=== PATIENT | male | born 1990 | race Caucasian/White ===

== ENCOUNTER 2019-08-06 16:09 | Emergency (ER) | payer MEDICAID ==
[~2019-08-06] VITALS: Ht 177.8 cm; Wt 81.8 kg
[2019-08-06 16:38] VITALS: Ht 177.8 cm; Wt 81.8 kg
[2019-08-06] MEDS ORDERED: IBUPROFEN800 MG PO (17:52)
[2019-08-06] MEDS ORDERED: BACTRIM 400-801 TAB PO (17:52)
[2019-08-06 18:31] VITALS: BP 128/68
[2019-08-24 12:58] VITALS: Ht 177.8 cm; Wt 81.8 kg
== END 2019-08-06 18:31 | disposition home or self-care (01) ==
LOC: D.ER 16:09
DX: L03.116 Cellulitis of left lower limb (principal)

== ENCOUNTER 2019-08-15 16:25 | Inpatient (IN) | payer MEDICAID ==
[~2019-08-15] VITALS: Ht 177.8 cm; Wt 8.6 kg
--- NOTE | ~2019-08-15 | HEMODYNAMI ---
PATIENT:NOLVIA MARTIN MEDICAL RECORD: [id number] : [birth year] LOCATION:[facility] D.2107 ADMISSION DATE: 08/15/19 Generatedon:08/21/201914:27 Patient name: NOLVIA MARTIN Patient #: [id number] SSN: DO B: 1990 Date of study: 08/21/2019 Page: Of Hemodynamic Procedure Report Patient Data Patient Demographics Procedure consent was obtained First Name: NOLVIA Gender: Male Last Name: VERONICA : 1990 Middle Initial: PHILLIP Age: 29 year(s) Patient #: [id number] Race: Additional ID: [id number] Contact details Address: [facility] UNKNOWN State: [place] City: [place] Zip code: [address] Past Medical History Allergies Allergen Reaction Date Comments Reported Other allergy 08/21/2019 N Admission Admission Data Admission Date: 08/15/2019 Admission Time: 19:31 Room #: D.2107 Height (in.): 69.69 BSA: 2.04 (m2) Height (cm.): 177 BMI: 27.77 (kg/m2) Weight (lbs.): 191.8 Weight (kg.): 87 Lab Results Lab Result Date: 08/21/2019 Lab Result Time: 0:00 Biochemistry Name Units Result Min Max BUN mg/dl 14 --(--*-)-- 7 18 Creatinine mg/dl 0.8 --(-*--)-- 0.6 1.3 eGFR ml/min 90 --(*---)-- 90 120 NONAFRICAN CBC Name Units Result Min Max Hematocrit % 40.6 -*(----)-- 42 54 Hemoglobin g/dl 13.6 --(*---)-- 13.5 17.5 Procedure Procedure Types Cath Procedure Diagnostic Procedure ESTEFANY Procedure Description Procedure Date Procedure Date: 08/21/2019 Procedure Start Time: 13:49 Procedure Staff Name Function Danny Hollingsworth MD Performing Physician Dora Lopez RT Monitor Eva Holbrook RT Monitor Eliana Stauffer RN Nurse Jazmín Jenkins Senior Laboratory Technician Zeeshan Brandt CRNA Additional personnel Procedure Data Cath Procedure Estimated blood loss: 0 ml Procedure Complications No complications Procedure Medications Medication Administration Route Dosage Oxygen etCO2 Nasal cannula 2 l/min Refer to Anesthesia Notes for Sedation Medications Hurricaine Bulpitt P.O. 1 Sprays Hemodynamics Rest BSA: 2.04 (m2) HGB: 13.6 (g/dl) O2 Consumption: Estimated: 246.54 (ml/min) O2 Consumption indexed: Estimated:120.85 (ml/min/m) Heart Rate: 59 (bpm) Snapshots Pre Cath Intra NCS Post Cath Vital Signs Time Heart Resp SPO2 etCO2 NIBP (mmHg) Rhythm Pain Sedation Rate (ipm) (%) (mmHg) Status Level (bpm) 14:05:36 71 16 97 24.7 143/93(111) NSR 0 (11) 10(A) , No pain 14:09:57 72 14 98 0 147/83(117) NSR 0 (11) 10(A) , No pain 14:14:51 84 21 94 37.4 134/77(104) NSR 0 (11) 10(A) , No pain 14:19:05 82 23 98 31.4 151/98(127) NSR 0 (11) 9(A) , No pain 14:23:25 88 22 99 35.9 137/82(109) NSR 0 (11) 10(A) , No pain Medications Time Medication Route Dose Verified Delivered Reason Notes Effecti veness by by 14:04:42 Oxygen etCO2 2 Danny Monroy used for Nasal l/min St Dylon Stauffer RN procedure cannula 14:04:56 Refer to Danny Monroy Anesthesia St Dylon Stauffer RN Notes for Sedation Medications 14:05:07 Hurricaine P[address]O. 1 Danny Monroy for local Bulpitt Sprays St Dylon Stauffer RN anesthetic Procedure Log Time Note 13:50:49 Informed consent obtained and on chart 13:51:44 Procedure Status Urgent Heart Cath (IP). 13:51:45 Time tracking: Regular hours (M-F 7:00 - 5:00) 13:51:47 Plan of Care:Hemodynamics will remain stable., Cardiac rhythm will remain stable., Comfort level will be maintained., Respiratory function will remain adequate., Patient/ family verbilizes understanding of procedure., Procedure tolerated without complication., Recovers from procedure without complications.. 13:51:51 Eva Holbrook RT(R) sent for patient. Start room use. 13:51:55 H&P Date Dictated: 08/21/2019 Within 30 days and on chart.. 13:52:11 Patient allergic to Other allergyPCN 13:53:09 Lab Result : BUN 14 mg/dl 13:53:09 Lab Result : eGFR NONAFRICAN 90 ml/min 13:53:09 Lab Result : Creatinine 0.8 mg/dl 13:53:09 Lab Result : Hemoglobin 13.6 g/dl 13:53:09 Lab Result : Hematocrit 40.6 % 13:53:52 Zeeshan Brandt CRNA present and monitoring patient for TIVA. 13:56:14 Patient Weight : 191.8 lbs 13:56:18 Patient Height : 69.69 inches 14:00:03 Patient arrived from [facility] to CCL 1. Patient remains on bed/stretcher for procedure. 14:00:04 Warm blankets applied, and kaiser hugger turned on for patient comfort. 14:00:05 Correct patient and procedure confirmed by team. 14:00:06 ECG and BP/O2 sat monitors applied to patient. 14:01:42 Full Disclosure recording started 14:01:42 Pre-procedure instructions explained to patient. 14:01:43 Pre-op teaching completed and patient verbalized understanding. 14:01:45 Family in patients room. 14:01:58 Is the patient allergic to Iodine/contrast media? No. 14:02:04 Is patient on blood thinner?No 14:02:07 Patient diabetic? No. 14:02:28 If diabetic: On Metformin? No 14:02:37 Previous problem with sedation/anesthesia? No ? 14:02:38 Snore? Yes 14:02:39 Sleep apnea? No 14:02:40 Deviated septum? No 14:02:40 Opens mouth fully? Yes 14:02:41 Sticks out tongue? Yes 14:02:43 Airway obstruction? No ? 14:02:45 Dentures? No ? 14:02:55 Patient pain scale 0/10 ?. 14:03:17 IV patent on arrival in right forearm with 0.9% NaCl at O. 14:03:46 Alarms reviewed by Angel Bonilla 14:04:31 Vital chart was started 14:04:37 Baseline sample Acquired. 14:04:42 Oxygen 2 l/min etCO2 Nasal cannula was administered by Eliana Stauffer RN; used for procedure; Verbal order read back and verified. 14:04:44 Rhythm: sinus rhythm 14:04:56 Refer to Anesthesia Notes for Sedation Medications was administered by Eliana Stauffer RN; ; Verbal order read back and verified. 14:05:07 Hurricaine Bulpitt 1 Sprays P.O. was administered by Eliana Stauffer RN; for local anesthetic; Verbal order read back and verified. 14:12:18 --------ALL STOP TIME OUT------ 14:12:19 Final Timeout: patient, procedure, and site verified with staff and physician. All members of the team are in agreement. 14:12:40 Physical assessment completed. ASA score P 2 - A patient with mild systemic disease as per Danny Hollingsworth MD. 14:12:44 Sedation plan: TIVA Medication:Propofol 14:13:05 ESTEFANY 14:13:08 Jazmín [place] Envelope Maker present for ESTEFANY. 14:13:24 ESTEFANY started. 14:21:25 ESTEFANY completed. 14:21:39 Procedure ended.(Physican Out) 14:22:05 Post-procedure physical assessment completed. ASA score P 2 - A patient with mild systemic disease as per Danny Hollingsworth MD. 14:22:08 Post procedure rhythm: sinus rhythm 14:22:11 Estimated blood loss: 0 ml 14:22:16 Post procedure instruction explained to patient.Patient verbalizes understanding. 14:22:17 Patient needs reinforcement of post procedure teaching. 14:22:41 Procedure Complication : No complications 14:22:52 ESTEFANY Findings: vegetation noted (see operative note) 14:23:03 Operative report dictated upon procedure completion. 14:23:04 See physician's report for complete and final results. 14:26:06 Report given to [facility]. 14:26:09 Patient transfered to [facility] with Bed. 14:26:13 Vital chart was stopped 14:26:18 End room use (Document Last) 14:27:01 End room use (Document Last) 14:27:22 End room use (Document Last) Signature Audit Longs Stage Time Signature Unsigned Intra-Procedure 08/21/2019 Dora Lopez 2:27:01 PM RT(R) Intra-Procedure 08/21/2019 Eliana Stauffer RN 2:27:22 PM Intra-Procedure 08/21/2019 Danny Vincent 2:27:46 PM Dylon [facility] [address] [place] [address]
[~2019-08-15 16:25] MED LIST: BACTRIM 400-801 TAB PO; IBUPROFEN800 MG PO
[2019-08-15 17:40] LABS: BASOPHILS 0.4 % (0-2); EOSINOPHILS 3.5 % (0-7); HEMATOCRIT 39.9 % (42.0-54.0); HEMOGLOBIN 13.5 g/dL (13.5-17.5); IMMATURE GRANULOCYTES 0.2 % (0-5); LYMPHOCYTES 21.1 % (15-50); MCH 29.9 pg (26.0-34.0); MCHC 33.8 g/dL (31.0-37.0); MCV 88.5 fL (80.0-100.0); MEAN PLATELET VOLUME 9.7 fL (7.4-10.4); MONOCYTES 7.5 % (2-11); NEUTROPHILS 67.3 % (40-80); PLATELET COUNT 257 10x3/uL (130-400); RBC 4.51 10x6/uL (4.20-6.10); RDW 12.9 % (11.5-14.5); WBC 15.6 10x3/uL (4.8-10.8)
[2019-08-15 17:54] LABS: CALC OSMOLALITY 279 mosm/kg (275-300); CALCIUM 8.3 mg/dL (8.5-10.1); CARBON DIOXIDE 29.4 mmol/L (21.0-32.0); CHLORIDE - SERUM 101 mmol/L (98-107); CREATININE - SERUM 0.9 mg/dL (0.6-1.3); GLUCOSE 80 mg/dL (74-106); POTASSIUM - SERUM 4.5 mmol/L (3.5-5.1); SODIUM 137 mmol/L (136-145); UREA NITROGEN 32 mg/dL (7-18); eGFR NON AFRICAN AMERICAN > 90 mL/min (90-120)
[2019-08-15 18:00] LABS: ALBUMIN 3.4 g/dL (3.4-5.0); ALKALINE PHOSPHATASE 108 U/L (46-116); ALT (SGPT) 38 U/L (10-68); BILIRUBIN - TOTAL 0.73 mg/dL (0.2-1.3); PROTEIN - SERUM 6.9 g/dL (6.4-8.2)
--- NOTE | 2019-08-15 19:18 | NUR ---
ASSUMED CARE OF PATIENT, RECEIVED REPORT FROM YESSICA AGUIAR.
[2019-08-15 19:59] LABS: APPEARANCE CLEAR (CLEAR); COLOR YELLOW (YELLOW)
[2019-08-15 20:00] LABS: BILIRUBIN NEGATIVE (NEGATIVE); GLUCOSE NEGATIVE (NEGATIVE); KETONE NEGATIVE (NEGATIVE); NITRITE NEGATIVE (NEGATIVE); PROTEIN NEGATIVE (NEGATIVE); UROBILINOGEN NORMAL (NORMAL)
[2019-08-15 20:04] LABS: UDS - AMPHET POSITIVE QUAL (NEGATIVE); UDS - BARB NEGATIVE QUAL (NEGATIVE); UDS - BENZO NEGATIVE QUAL (NEGATIVE); UDS - COCAINE NEGATIVE QUAL (NEGATIVE); UDS - OPIATE NEGATIVE QUAL (NEGATIVE); UDS - PCP NEGATIVE QUAL (NEGATIVE); UDS - THC POSITIVE QUAL (NEGATIVE)
--- NOTE | 2019-08-15 20:50 | NUR ---
PT ARRIVED TO FLOOR VIA WHEELCHAIR ALERT AND ORIENTED X4. PT COMPLAINS OF PAIN AND SORES ON BLE. PT CAME TO FLOOR WITH VANCAMYCIN RUNNING. PT STATES HE IS "sTARVING" AND REQUESTED FOOD. SANWHICH AND COKE PROVIDED. VITALS ARE STABLE AT THIS TIME. NO S/S OF DISTRESS. BED LOW CALL LIGHT WITHIN REACH. WILL CONTINUE TO MONITOR.
[2019-08-15 21:38] VITALS: BP 137/87; BMI 24.7
--- NOTE | 2019-08-15 21:49 | NUR ---
RN ASMISSION ASSESSMENT COMPLETED. IV TO LAC WITH IVAB INFUSING AT THIS TIME. PT ALERT. NUMEROUS SORES NOTED TO BUTTOCKS. SORE TO L POSTERIOR THIGH APPROX 2.5CM IN DIAMETER. SORE TO L ANTERIOR THIGH APPROX 2CM IN DIAMETER. 2 SORES TO L JOHNSON 2CM AND 3CM IN DIAMTER RESPECTIVELY. JOHNSON RED AND HOT TO TOUCH. HEALING SORE TO OUTER ASPECT OF L FOOT .75CM IN DIAMETER. CALL LIGHT WITHIN REACH.
[2019-08-16 00:15] VITALS: BP 136/83
[2019-08-16 04:18] VITALS: BP 136/70
[2019-08-16 05:30] LABS: BASOPHILS 0.3 % (0-2); EOSINOPHILS 4.5 % (0-7); HEMATOCRIT 36.8 % (42.0-54.0); HEMOGLOBIN 12.1 g/dL (13.5-17.5); IMMATURE GRANULOCYTES 0.2 % (0-5); LYMPHOCYTES 23.4 % (15-50); MCH 29.7 pg (26.0-34.0); MCHC 32.9 g/dL (31.0-37.0); MCV 90.4 fL (80.0-100.0); MEAN PLATELET VOLUME 10.3 fL (7.4-10.4); MONOCYTES 7.8 % (2-11); NEUTROPHILS 63.8 % (40-80); PLATELET COUNT 240 10x3/uL (130-400); RBC 4.07 10x6/uL (4.20-6.10); RDW 13.2 % (11.5-14.5)
[2019-08-16 05:56] LABS: CALC OSMOLALITY 280 mosm/kg (275-300); CALCIUM 8.1 mg/dL (8.5-10.1); CARBON DIOXIDE 27.4 mmol/L (21.0-32.0); CHLORIDE - SERUM 105 mmol/L (98-107); CREATININE - SERUM 0.9 mg/dL (0.6-1.3); GLUCOSE 102 mg/dL (74-106); PHOSPHOROUS 3.7 mg/dL (2.5-4.9); POTASSIUM - SERUM 4.3 mmol/L (3.5-5.1); SODIUM 139 mmol/L (136-145); eGFR NON AFRICAN AMERICAN > 90 mL/min (90-120)
[2019-08-16 06:01] LABS: UREA NITROGEN 21 mg/dL (7-18)
[2019-08-16 06:06] LABS: APTT 36.4 SECONDS (22.8-39.4); INR 1.02 (0.85-1.17); PROTIME 12.9 SECONDS (11.6-15.0)
[2019-08-16 06:16] LABS: WBC 11.3 10x3/uL (4.8-10.8)
[2019-08-16 09:10] VITALS: BP 162/81
[2019-08-16 12:00] VITALS: BP 148/92; BP 149/92
[2019-08-16 13:42] VITALS: BMI 24.6
[2019-08-16 16:00] VITALS: BP 157/89
--- NOTE | 2019-08-16 16:55 | NUR ---
REVIEWED THE ASSESSMENT BY GOVERNMENT GAUGER TODAY AND I CONCUR.
[2019-08-16 20:30] VITALS: BP 157/81
[2019-08-17 05:33] LABS: BASOPHILS 0.2 % (0-2); EOSINOPHILS 4.2 % (0-7); HEMATOCRIT 37.5 % (42.0-54.0); HEMOGLOBIN 12.1 g/dL (13.5-17.5); IMMATURE GRANULOCYTES 0.3 % (0-5); LYMPHOCYTES 19.8 % (15-50); MCH 29.7 pg (26.0-34.0); MCHC 32.3 g/dL (31.0-37.0); MCV 91.9 fL (80.0-100.0); NEUTROPHILS 68.5 % (40-80); PLATELET COUNT 224 10x3/uL (130-400); RBC 4.08 10x6/uL (4.20-6.10); RDW 13.1 % (11.5-14.5); WBC 10.3 10x3/uL (4.8-10.8)
[2019-08-17 05:52] LABS: CALC OSMOLALITY 278 mosm/kg (275-300); CALCIUM 8.1 mg/dL (8.5-10.1); CHLORIDE - SERUM 104 mmol/L (98-107); CREATININE - SERUM 0.9 mg/dL (0.6-1.3); GLUCOSE 138 mg/dL (74-106); MAGNESIUM - SERUM 1.8 mg/dL (1.8-2.4); PHOSPHOROUS 2.9 mg/dL (2.5-4.9); POTASSIUM - SERUM 4.3 mmol/L (3.5-5.1); SODIUM 139 mmol/L (136-145); VANCOMYCIN - TROUGH 5.6 ug/mL (10.0-20.0); eGFR NON AFRICAN AMERICAN > 90 mL/min (90-120)
[2019-08-17 05:53] LABS: UREA NITROGEN 10 mg/dL (7-18)
--- NOTE | 2019-08-17 08:01 | NUR ---
RECEIVED PT SITTING ON SIDE OF BED EATING BREAKFAST. LLE WITH TWO AREAS OF SCABS THAT ARE DRY, NO DRESSING AT PRESENT. RIGHT FOOT WITH MULTIPLE AREAS OF SCAB AROUND TOES. NOSE WITH SCAB TO RIGHT LATERAL OUTSIDE AND LEFT NARE INTERNALLY.
[2019-08-17 09:14] VITALS: BP 145/85
[2019-08-17 12:47] VITALS: BP 145/81
[2019-08-17 18:21] VITALS: BP 156/80
--- NOTE | 2019-08-17 19:18 | NUR ---
AT REST WITH EYES CLOSED BED LOW AND LOCKED AND CALL LIGHT IS IN REACH
[2019-08-17 20:00] VITALS: BP 144/85
[2019-08-18] VITALS: BP 131/90
--- NOTE | 2019-08-18 03:56 | NUR ---
I have reviewed this patient and I concur with the Shift Assessment completed by the Licensed Practical Nurse today this shift.
[2019-08-18 04:00] VITALS: BP 154/94
[2019-08-18 04:22] LABS: BASOPHILS 0.4 % (0-2); EOSINOPHILS 5.1 % (0-7); HEMATOCRIT 37.5 % (42.0-54.0); HEMOGLOBIN 12.2 g/dL (13.5-17.5); IMMATURE GRANULOCYTES 0.1 % (0-5); LYMPHOCYTES 27.5 % (15-50); MCH 29.6 pg (26.0-34.0); MCHC 32.5 g/dL (31.0-37.0); MEAN PLATELET VOLUME 9.7 fL (7.4-10.4); MONOCYTES 8.2 % (2-11); NEUTROPHILS 58.7 % (40-80); PLATELET COUNT 223 10x3/uL (130-400); RBC 4.12 10x6/uL (4.20-6.10); RDW 12.7 % (11.5-14.5)
[2019-08-18 04:43] LABS: CALC OSMOLALITY 276 mosm/kg (275-300); CALCIUM 8.1 mg/dL (8.5-10.1); CARBON DIOXIDE 31.4 mmol/L (21.0-32.0); CHLORIDE - SERUM 104 mmol/L (98-107); CREATININE - SERUM 0.9 mg/dL (0.6-1.3); GLUCOSE 144 mg/dL (74-106); MAGNESIUM - SERUM 1.8 mg/dL (1.8-2.4); PHOSPHOROUS 3.3 mg/dL (2.5-4.9); POTASSIUM - SERUM 4.1 mmol/L (3.5-5.1); SODIUM 138 mmol/L (136-145); UREA NITROGEN 8 mg/dL (7-18); eGFR NON AFRICAN AMERICAN > 90 mL/min (90-120)
[2019-08-18 07:38] VITALS: BP 148/88
--- NOTE | 2019-08-18 09:14 | NUR ---
PT RECEIVED SLEEPING IN BED. AROUSE TO VOICE BUT BACK TO SLEEP EASILY. WILL MONITOR.
[2019-08-18 11:24] VITALS: BP 148/94
[2019-08-18 15:06] VITALS: BP 155/93
--- NOTE | 2019-08-18 16:14 | NUR ---
IN ADDITION TO OPEN WOUNDS ON LEFT JOHNSON (X2) AND RIGHT FOOT PT ALSO HAS WOUND ON LEFT POSTERIOR THIGH (AT BOTTOM OF BUTTOCKS) IT HAS A SCAB AND NO DRAINAGE. INSTRUCTED PT TO USE BETADINE ON IT WHEN DRESSING CHANGES ARE DONE ON LEGS. PT VOICED UNDERSTANDING. WOUND CARE WILL MONITOR.
--- NOTE | 2019-08-18 19:48 | NUR ---
REPORT RECIEVED AND ROUNDING COMPLETE. PATIENT LAYING IN SUPINE POSITION IN BED. PURVI ASKED FOR 2 SPRITES, I GAVE THEM. PURVI ASKED ME TO TAKE DINNER TRAY OUT OF HIS ROOM, I ALSO DID THAT. PATIENT HAS A SALINE LOCKED LEFT FOREARM PIV. PIV SHOWING NO S/SX OF INFILTRATION. PATIENT NOT SHOWING ANY S/SX OF DISTRESS AT THIS TIME. CALL LIGHT WITH REACH AND BED IN LOWEST LOCKED POSITION. PATIENT STATES HE HAS NO OTHER NEEDS AT THIS TIME.
[2019-08-19 00:49] VITALS: BP 141/83
[2019-08-19 05:38] VITALS: BP 152/100
--- NOTE | 2019-08-19 06:02 | NUR ---
I have reviewed this patient and I concur with the Shift Assessment completed by the Licensed Practical Nurse today this shift.
[2019-08-19 06:06] LABS: BASOPHILS 0.5 % (0-2); EOSINOPHILS 5.2 % (0-7); HEMATOCRIT 39.7 % (42.0-54.0); HEMOGLOBIN 13.1 g/dL (13.5-17.5); IMMATURE GRANULOCYTES 0.2 % (0-5); LYMPHOCYTES 28.7 % (15-50); MCH 29.6 pg (26.0-34.0); MCV 89.6 fL (80.0-100.0); MEAN PLATELET VOLUME 9.9 fL (7.4-10.4); MONOCYTES 7.2 % (2-11); NEUTROPHILS 58.2 % (40-80); PLATELET COUNT 263 10x3/uL (130-400); RBC 4.43 10x6/uL (4.20-6.10); RDW 12.6 % (11.5-14.5); WBC 10.5 10x3/uL (4.8-10.8)
[2019-08-19 06:11] LABS: CALC OSMOLALITY 277 mosm/kg (275-300); CALCIUM 8.7 mg/dL (8.5-10.1); CARBON DIOXIDE 32.1 mmol/L (21.0-32.0); CHLORIDE - SERUM 104 mmol/L (98-107); CREATININE - SERUM 0.8 mg/dL (0.6-1.3); GLUCOSE 106 mg/dL (74-106); MAGNESIUM - SERUM 1.9 mg/dL (1.8-2.4); PHOSPHOROUS 3.8 mg/dL (2.5-4.9); POTASSIUM - SERUM 4.6 mmol/L (3.5-5.1); SODIUM 140 mmol/L (136-145); eGFR NON AFRICAN AMERICAN > 90 mL/min (90-120)
[2019-08-19 06:15] LABS: UREA NITROGEN 11 mg/dL (7-18)
--- NOTE | 2019-08-19 07:39 | NUR ---
PT RECEIVED AWAKE AND ALERT, ASKING FOR TYLENOL. DOSE GIVEN. DRESSING REMOVED BY PT PRIOR TO SHIFT START. WILL COORDINATE SHOWER AND DRESSING CHANGE.
[2019-08-19 07:59] VITALS: BP 157/99
--- NOTE | 2019-08-19 10:25 | NUR ---
DISCUSSED WITH OCTAVIA NUNEZ PT'S REQUEST FOR PAIN MEDS TO BE BACK ON NOV. STATES HE IS CLOSE TO DISCHARGE AND THEY WILL TALK TO HIM ON ROUNDS. TYLENOL EXTRA GIVEN FOR NOW.
[2019-08-19 11:45] VITALS: BP 131/93
--- NOTE | 2019-08-19 14:17 | NUR ---
Nutrition Follow-up: Pt eating well. Diet: Regular, Ensure/Boost TID PO intake: 100% Wt: 192# Last BM: 08/16 Labs reviewed Meds reviewed -May consider low sodium diet 2/2 elevated BPs. -RD following.
[2019-08-19 15:25] VITALS: BP 157/97
[2019-08-19 16:23] VITALS: Ht 177.8 cm; Wt 8.6 kg
--- NOTE | 2019-08-19 19:05 | NUR ---
REPORT RECEIVED, WILL CONTINUE POC. PATIENT IS AAOX4, LYING IN BED WITH EYES CLOSED. NO S/S OF DISTRESS OBSERVED, RR EVEN AND UNLABORED ON ROOM AIR. PATIENT DENIES NEEDS AT THIS TIME. CL IN REACH, BED LOCKED AND LOWERED. WILL CTM.
[2019-08-19 20:30] VITALS: BP 140/83
[2019-08-20 00:32] VITALS: BP 131/76
[2019-08-20 04:31] VITALS: BP 158/101
[2019-08-20 05:14] LABS: BASOPHILS 0.5 % (0-2); EOSINOPHILS 4.5 % (0-7); HEMATOCRIT 40.6 % (42.0-54.0); HEMOGLOBIN 13.6 g/dL (13.5-17.5); IMMATURE GRANULOCYTES 0.4 % (0-5); LYMPHOCYTES 23.4 % (15-50); MCH 29.8 pg (26.0-34.0); MCHC 33.5 g/dL (31.0-37.0); MCV 88.8 fL (80.0-100.0); MEAN PLATELET VOLUME 9.7 fL (7.4-10.4); MONOCYTES 5.5 % (2-11); NEUTROPHILS 65.7 % (40-80); PLATELET COUNT 289 10x3/uL (130-400); RBC 4.57 10x6/uL (4.20-6.10); RDW 12.8 % (11.5-14.5); WBC 12.6 10x3/uL (4.8-10.8)
[2019-08-20 05:24] LABS: CALC OSMOLALITY 278 mosm/kg (275-300); CALCIUM 8.5 mg/dL (8.5-10.1); CARBON DIOXIDE 30.1 mmol/L (21.0-32.0); CHLORIDE - SERUM 104 mmol/L (98-107); CREATININE - SERUM 0.8 mg/dL (0.6-1.3); GLUCOSE 96 mg/dL (74-106); MAGNESIUM - SERUM 1.8 mg/dL (1.8-2.4); PHOSPHOROUS 4.4 mg/dL (2.5-4.9); POTASSIUM - SERUM 4.4 mmol/L (3.5-5.1); SODIUM 139 mmol/L (136-145); eGFR NON AFRICAN AMERICAN > 90 mL/min (90-120)
[2019-08-20 05:31] LABS: UREA NITROGEN 14 mg/dL (7-18)
[2019-08-20 09:36] VITALS: BP 157/87
--- NOTE | 2019-08-20 10:00 | NUR ---
VANCOMYCIN STILL HANGING DID NOT RECEIVE LAST DOSE. PLACED IN SHARPS CONTAINER. CALLED PHARMACY AND NOTIFIED THEM.
--- NOTE | 2019-08-20 10:36 | NUR ---
CLEANSED LEFT CALF WITH BETADINE. PT REFUSED TO HAVE 4X4'S PLACED OVER WOUND. PT STATES "IT'S HEALING." PT OUT OF LOTRIMIN. CALLED PHARMACY AND STATED IT'S NOT IN CASSETTE OR PT'S ROOM. THEY STTE THEY WILL GET IT DISPENSED AND BRING IT UP TO MED 2. I VERBALIZED UNDERSTANDING.
[2019-08-20 12:22] VITALS: BP 147/90
--- NOTE | 2019-08-20 15:23 | NUR ---
I have reviewed this patient and I concur with the Shift Assessment completed by the Licensed Practical Nurse today this shift.
--- NOTE | 2019-08-20 15:38 | MORECARE ---
CASE MANAGEMENT DISCHARGE SUMMARY PATIENT: NOLVIA MARTIN UNIT: [id number] ADM DATE: 08/15/19 AGE: 29 : [birth year] SEX: M ROOM/BED: D.2107 AUTHOR: KATHERINE PINEDA PHYSICIAN: REFERRING PHYSICIAN: JEANNE ZUNIGA MD DATE OF SERVICE: 08/20/19 Discharge Plan Patient Name: NOLVIA MARTIN [facility] [facility] 1990 Planned Disposition: Home Anticipated Discharge Date: Discharge Date: Expected LOS: Initial Reviewer: [email or web address] Initial Review Date: 08/15/2019 Generated: 08/20/19 4:38 pm DCPIA - Discharge Planning Initial Assessment Updated by [email or web address]: Bertram Stanley on 08/20/19 3:36 pm * Is the patient Alert and Oriented? Yes * How many steps to enter\exit or inside your home? NONE * PCP NONE * Pharmacy [facility] * Preadmission Environment Home with Family * ADLs Independent * Equipment None * Other Equipment NO MEDICAL EQUIPMENT PROVIDER PREFERENCE * List name and contact numbers for known caregivers / representatives who currently or will assist patient after discharge: PAOLA CRABTREE, FRIEND, * Verbal permission to speak to the caregivers and representatives has been obtained from the patient. N/A * Community resources currently utilized None * Please name any agencies selected above. NONE * Additional services required to return to the preadmission environment? No * Can the patient safely return to the preadmission environment? Yes * Has this patient been hospitalized within the prior 30 days at any hospital? No Patient Name: NOLVIA MARTIN Page 10505 at 1538 All edits/amendments must be made on the electronic document DICTATION DATE: 08/20/191537 AUTOMATION SPECIALIST: RUBY 08/20/191537 RPT#: [id number] DC DATE: STATUS: ADM IN [facility] [address] [place] [address] END OF REPORT
--- NOTE | 2019-08-20 15:49 | MORECARE ---
CASE MANAGEMENT DISCHARGE SUMMARY PATIENT: NOLVIA MARTIN UNIT: [id number] ADM DATE: 08/15/19 AGE: 29 : [birth year] SEX: M ROOM/BED: D.6382 AUTHOR: MIRIAM,DOC PHYSICIAN: REFERRING PHYSICIAN: JEANNE ZUNIGA MD DATE OF SERVICE: 08/20/19 Discharge Plan Patient Name: NOLVIA MARTIN Facility: [facility]:[place] : 1990 Planned Disposition: Home Anticipated Discharge Date: Discharge Date: Expected LOS: Initial Reviewer: [email or web address] Initial Review Date: 08/15/2019 Generated: 08/20/19 4:49 pm Comments DCP- Discharge Planning Updated by [email or web address]: Bertram Stanley on 08/20/19 2:[address] Patient Name: NOLVIA MARTIN Admission Status: ER Accout number: [id number] Admission Date: 08-15-2019 : 1990 Admission Diagnosis: Attending: JEANNE ZUNIGA Current LOS: 5 Anticipated DC Date: Planned Disposition: Home Primary Insurance: MEDICAID [place] PENDING Discharge Planning Comments: CM MET WITH PT IN ROOM TO DISCUSS DISCHARGE PLANNING AND NEEDS. PT REPORTS BEING HOMELESS AND HAS BEEN LIVING AT FRIENDS HOMES. PT REPORTS BEING INDEPENDENT IN HIS CARE. PT HAS NO MEDICAL EQUIPMENT AND NO OUTSIDE SERVICES ASSISTING IN THE HOME. CM DISCUSSED AVAILABILITY OF HOME HEALTH, REHAB SERVICES AND MEDICAL EQUIPMENT. PT DENIES DISCHARGE NEEDS, REPORTS HE WILL GO TO A FRIENDS HOME IN [place] AT DISCHARGE AND A FRIEND WILL PICK HIM UP FOR DISCHARGE HOME. CM DISCUSSED PT'S DRUG AND TOBACCO USE. PT DENIES NEED OF INFORMATION ON REHAB SERVICES OR COMMUNITY SUPPORT SERVICES. PT IS NOT INTERESTED IN STOPPING SMOKING CIGARETTES AND REPORTS HE IS FAMILIAR WITH ALL RESOURCES AND SUPPORT SERVICES FOR DRUG ADDICTION IN [place]. THE HOSPITAL HAS FILED FOR MEDICAID FOR PT, IT HAS YET TO BE APPROVED OR DENIED. PT PLANS TO DISCHARGE HOME WITH A FRIEND IN [place]. PT WILL PROVIDE ADDRESS AT DISCHARGE IF SERVICES NEED TO BE ARRANGED IN THE HOME. PT REPORTS A FRIEND WILL PICK HIM UP. PT HAS NO INSURANCE AT THIS TIME AND MAY NEED MEDICATION ASSISTANCE AT DISCHARGE. CM TO ASSESS CLOSER TO DISCHARGE AND NEEDS ARE IDENTIFIED. Back Hoe Operator: Bertram Stanley DCPIA - Discharge Planning Initial Assessment Updated by [email or web address]: Bertram Stanley on 08/20/19 3:36 pm * Is the patient Alert and Oriented? Yes * How many steps to enter\exit or inside your home? NONE * PCP NONE * Pharmacy [facility] [address] * Preadmission Environment Home with Family * ADLs Independent * Equipment None * Other Equipment NO MEDICAL EQUIPMENT PROVIDER PREFERENCE * List name and contact numbers for known caregivers / representatives who currently or will assist patient after discharge: PAOLA CRABTREE, FRIEND, * Verbal permission to speak to the caregivers and representatives has been obtained from the patient. N/A * Community resources currently utilized None * Please name any agencies selected above. NONE * Additional services required to return to the preadmission environment? No * Can the patient safely return to the preadmission environment? Yes * Has this patient been hospitalized within the prior 30 days at any hospital? No Last DP export: 08/20/19 2:38 Patient Name: NOLVIA MARTIN Page [id number] at 1549 All edits/amendments must be made on the electronic document DICTATION DATE: 08/20/19 154 PULP ROLLER: RUBY 08/20/19 1549 RPT#: [id number] ND DATE: STATUS: ADM IN [facility] [address] [place] [address] END OF REPORT
[2019-08-20 16:00] VITALS: BP 147/90
--- NOTE | 2019-08-20 18:09 | NUR ---
PT SHOWERED AND COMPLETE LINEN CHANGE DONE.
--- NOTE | 2019-08-20 18:45 | NUR ---
CONSENTS FOR ESTEFANY TOMORROW SIGNED.
--- NOTE | 2019-08-20 19:17 | NUR ---
RIGHT FA 22G IV LEAKING. DC'D WITH CATH INTACT. INSERTED RIGHT FA 22G IV ON SECOND ATTEMPT. PT NOW WANTING NICOTINE PATCH.
--- NOTE | 2019-08-20 19:31 | NUR ---
REPORT RECEIVED, WILL CONTINUE POC. PATIENT IS AAOX4, UP AD GRACE, LYING IN SEMI-FOWLERS POSITION. NO S/S OF DISTRESS OBSERVED, RR EVEN AND UNLABORED ON ROOM AIR. PATIENT DENIES NEEDS AT THIS TIME. CL IN REACH, BED LOCKED AND LOWERED. WILL CTM.
[2019-08-20 20:21] VITALS: BP 149/84
[2019-08-21] VITALS (7 sets, daily range): BP systolic 133–158; BP diastolic 68–109
--- NOTE | 2019-08-21 04:52 | NUR ---
PO MEDS WITH HELD THIS AM. PATIENT IS NPO FOR A PROCEDURE.
[2019-08-21 05:54] LABS: BASOPHILS 0.5 % (0-2); EOSINOPHILS 4.6 % (0-7); HEMATOCRIT 40.9 % (42.0-54.0); HEMOGLOBIN 13.8 g/dL (13.5-17.5); IMMATURE GRANULOCYTES 0.5 % (0-5); LYMPHOCYTES 25.6 % (15-50); MCH 29.9 pg (26.0-34.0); MCHC 33.7 g/dL (31.0-37.0); MCV 88.7 fL (80.0-100.0); MEAN PLATELET VOLUME 9.8 fL (7.4-10.4); MONOCYTES 5.8 % (2-11); PLATELET COUNT 289 10x3/uL (130-400); RBC 4.61 10x6/uL (4.20-6.10); RDW 12.7 % (11.5-14.5); WBC 12.1 10x3/uL (4.8-10.8)
[2019-08-21 06:20] LABS: ALBUMIN 2.6 g/dL (3.4-5.0); ALKALINE PHOSPHATASE 83 U/L (46-116); ALT (SGPT) 38 U/L (10-68); BILIRUBIN - TOTAL 0.31 mg/dL (0.2-1.3); CALC OSMOLALITY 279 mosm/kg (275-300); CALCIUM 8.6 mg/dL (8.5-10.1); CARBON DIOXIDE 27.4 mmol/L (21.0-32.0); CHLORIDE - SERUM 106 mmol/L (98-107); CREATININE - SERUM 0.8 mg/dL (0.6-1.3); GLUCOSE 97 mg/dL (74-106); MAGNESIUM - SERUM 1.9 mg/dL (1.8-2.4); POTASSIUM - SERUM 4.3 mmol/L (3.5-5.1); PROTEIN - SERUM 6.6 g/dL (6.4-8.2); SODIUM 140 mmol/L (136-145); UREA NITROGEN 14 mg/dL (7-18); eGFR NON AFRICAN AMERICAN > 90 mL/min (90-120)
--- NOTE | 2019-08-21 19:04 | NUR ---
awake and alert pt just had bath EDUCATION ON IV ACCDESS ATTEMPTED BED LOW AND LOCKED SRX1 CALL LIGHT IS WITH PT CONTINUE TO OBSERVE CONTACT ISOLATION
[2019-08-22] VITALS: BP 134/77
[2019-08-22 04:00] VITALS: BP 120/78
[2019-08-22 04:36] LABS: BASOPHILS 0.7 % (0-2); EOSINOPHILS 4.2 % (0-7); HEMATOCRIT 40.1 % (42.0-54.0); HEMOGLOBIN 13.5 g/dL (13.5-17.5); IMMATURE GRANULOCYTES 0.5 % (0-5); LYMPHOCYTES 33.9 % (15-50); MCH 29.8 pg (26.0-34.0); MCHC 33.7 g/dL (31.0-37.0); MCV 88.5 fL (80.0-100.0); MEAN PLATELET VOLUME 9.7 fL (7.4-10.4); MONOCYTES 7.5 % (2-11); NEUTROPHILS 53.2 % (40-80); PLATELET COUNT 285 10x3/uL (130-400); RBC 4.53 10x6/uL (4.20-6.10); RDW 12.7 % (11.5-14.5); WBC 11.1 10x3/uL (4.8-10.8)
[2019-08-22 04:51] LABS: ALBUMIN 2.7 g/dL (3.4-5.0); ALKALINE PHOSPHATASE 81 U/L (46-116); ALT (SGPT) 44 U/L (10-68); BILIRUBIN - TOTAL 0.27 mg/dL (0.2-1.3); CALC OSMOLALITY 279 mosm/kg (275-300); CALCIUM 8.7 mg/dL (8.5-10.1); CARBON DIOXIDE 30.3 mmol/L (21.0-32.0); CHLORIDE - SERUM 104 mmol/L (98-107); CREATININE - SERUM 0.9 mg/dL (0.6-1.3); GLUCOSE 94 mg/dL (74-106); MAGNESIUM - SERUM 1.9 mg/dL (1.8-2.4); PHOSPHOROUS 5.2 mg/dL (2.5-4.9); POTASSIUM - SERUM 4.4 mmol/L (3.5-5.1); PROTEIN - SERUM 6.7 g/dL (6.4-8.2); SODIUM 139 mmol/L (136-145); eGFR NON AFRICAN AMERICAN > 90 mL/min (90-120)
[2019-08-22 04:54] LABS: UREA NITROGEN 19 mg/dL (7-18)
--- NOTE | 2019-08-22 04:56 | NUR ---
I have reviewed this patient and I concur with the Shift Assessment completed by the Licensed Practical Nurse today this shift.
--- NOTE | 2019-08-22 08:00 | NUR ---
ALERT AND ORIENTED X4. DARK AREA 3MM/3MM NOTED TO DIGIT TO RT. FOOT. PEDAL PULSES NOTED WITH NO PERIPHERAL EDEMA NOTED. CONTINUES ON CONTACT ISOLATION. DENIES ANY PAIN OR DISCOMFORT AND UP ADLIB. ENCOURAGED TO USE CALL LIGHT FOR ASSSIT.
[2019-08-22 09:51] VITALS: BP 148/79
[2019-08-22] MEDS ORDERED: Triple Antibiotic Oi TOPICAL (16:15)
[2019-08-22] MEDS ORDERED: CLOTRIM ANTIFUN15 GM TOPICAL (16:15)
--- NOTE | 2019-08-22 16:31 | MORECARE ---
CASE MANAGEMENT DISCHARGE SUMMARY PATIENT: NOLVIA MARTIN UNIT: [id number] ADM DATE: 08/15/19 AGE: 29 : [birth year] SEX: M ROOM/BED: D.7570 AUTHOR: MIRIAM,DOC PHYSICIAN: REFERRING PHYSICIAN: JEANNE ZUNIGA MD DATE OF SERVICE: 08/22/19 Discharge Plan Patient Name: NOLVIA MARTIN Facility: [facility]:[place] : 1990 Planned Disposition: Outpatient clinics\services (Programs) Anticipated Discharge Date: 08/22/19 Discharge Date: Expected LOS: 7 Initial Reviewer: [email or web address] Initial Review Date: 08/15/2019 Generated: 08/22/19 5:31 pm DCP- Discharge Planning Updated by [email or web address]: Bertram Stanley on 08/20/19 2:[address] Patient Name: NOLVIA MARTIN Admission Status: ER Accout number: [id number] Admission Date: 08-15-2019 : 1990 Admission Diagnosis: Attending: JEANNE ZUNIGA Current LOS: 5 Anticipated DC Date: Planned Disposition: Home Primary Insurance: MEDICAID [place] PENDING Discharge Planning Comments: CM MET WITH PT IN ROOM TO DISCUSS DISCHARGE PLANNING AND NEEDS. PT REPORTS BEING HOMELESS AND HAS BEEN LIVING AT FRIENDS HOMES. PT REPORTS BEING INDEPENDENT IN HIS CARE. PT HAS NO MEDICAL EQUIPMENT AND NO OUTSIDE SERVICES ASSISTING IN THE HOME. CM DISCUSSED AVAILABILITY OF HOME HEALTH, REHAB SERVICES AND MEDICAL EQUIPMENT. PT DENIES DISCHARGE NEEDS, REPORTS HE WILL GO TO A FRIENDS HOME IN [place] AT DISCHARGE AND A FRIEND WILL PICK HIM UP FOR DISCHARGE HOME. CM DISCUSSED PT'S DRUG AND TOBACCO USE. PT DENIES NEED OF INFORMATION ON REHAB SERVICES OR COMMUNITY SUPPORT SERVICES. PT IS NOT INTERESTED IN STOPPING SMOKING CIGARETTES AND REPORTS HE IS FAMILIAR WITH ALL RESOURCES AND SUPPORT SERVICES FOR DRUG ADDICTION IN [place]. THE HOSPITAL HAS FILED FOR MEDICAID FOR PT, IT HAS YET TO BE APPROVED OR DENIED. PT PLANS TO DISCHARGE HOME WITH A FRIEND IN [place]. PT WILL PROVIDE ADDRESS AT DISCHARGE IF SERVICES NEED TO BE ARRANGED IN THE HOME. PT REPORTS A FRIEND WILL PICK HIM UP. PT HAS NO INSURANCE AT THIS TIME AND MAY NEED MEDICATION ASSISTANCE AT DISCHARGE. CM TO ASSESS CLOSER TO DISCHARGE AND NEEDS ARE IDENTIFIED. Pilot Supervisor: Bertram Stanley DCPIA - Discharge Planning Initial Assessment Updated by [id number]: Bertram Stanley on 08/20/19 3:36 pm * Is the patient Alert and Oriented? Yes * How many steps to enter\exit or inside your home? NONE * PCP NONE * Pharmacy [facility] ON [address] * Preadmission Environment Home with Family * ADLs Independent * Equipment None * Other Equipment NO MEDICAL EQUIPMENT PROVIDER PREFERENCE * List name and contact numbers for known caregivers / representatives who currently or will assist patient after discharge: PAOLA CRABTREE, FRIEND, * Verbal permission to speak to the caregivers and representatives has been obtained from the patient. N/A * Community resources currently utilized None * Please name any agencies selected above. NONE * Additional services required to return to the preadmission environment? No * Can the patient safely return to the preadmission environment? Yes * Has this patient been hospitalized within the prior 30 days at any hospital? No Last DP export: 08/20/19 2:49 Patient Name: NOLVIA MARTIN Page [id number] at 1631 All edits/amendments must be made on the electronic document DICTATION DATE: 08/22/19 1631 TREER: RUBY 08/22/19 1631 RPT#: [id number] DC DATE: STATUS: ADM IN [facility] [address] [place] [address] END OF REPORT
--- NOTE | 2019-08-22 16:50 | MORECARE ---
CASE MANAGEMENT DISCHARGE SUMMARY PATIENT: NOLVIA MARTIN UNIT: [id number] ADM DATE: 08/15/19 AGE: 29 : [birth year] SEX: M ROOM/BED: D.2103 AUTHOR: MIRIAM,DOC PHYSICIAN: REFERRING PHYSICIAN: JEANNE ZUNIGA MD DATE OF SERVICE: 08/22/19 Discharge Plan Patient Name: NOLVIA MARTIN Facility: [facility]:[place] : 1990 Planned Disposition: Outpatient clinics\\services (Programs) Anticipated Discharge Date: 08/22/19 Discharge Date: Expected LOS: 7 Initial Reviewer: [email or web address] Initial Review Date: 08/15/2019 Generated: 08/22/19 5:50 pm Comments DCP- Discharge Planning Updated by [email or web address]: Bertram Stanley on 08/22/19 3:[address] Patient Name: NOLVIA MARTIN Encounter No: [id number] : 1990 Primary Insurance: MEDICAID [place] PENDING Anticipated DC Date: 08-22-2019 Planned Disposition: Outpatient clinics\\services (Programs) External Planned Provider: [facility] DCP follow-up note: CM RECEIVED ORDER FOR OUTPATIENT INFUSION OF VANCOMYCIN, Q 24 HOURS. CM SPOKE TO PT IN ROOM, PT REPORTS HE HAS A FRIEND [place]" [place]. PT DOES NOT KNOW THE ADDRESS AND PLANS TO WALK THERE AT DISCHARGE TODAY. PT REPORTS HE MAY NEEDS BUS PASSES TO GET BACK AND FORTH TO THE HOSPITAL DAILY BUT CAN COME EVERY DAY. PT DOES NOT HAVE A PHONE NUMBER TO CONTACT HIM. CM CALLED OUTPATIENT SCHEDULING, [phone], SPOKE TO MABLE AND PROVIDED ORDER FOR OUPATIENT INFUSION TO BEGIN TOMORROW. CM FAXED REFERRAL WITH ORDER, FACE SHEET AND MEDICAID NUMBER TO MABLE AT [phone]. CM PROVIDED PT WITH DETAILED INSTRUCTIONS TO GO TO EMERGENCY ROOM FOR INFUSION ON WEEKENDS, 1145AM AND TO OUTPATIENT REGISTRATION, SUNDAY THROUGH SUNDAY 1145 AM. CM PROVIDED PT WITH TWO BUS PASSES WITH INSTRUCTIONS TO ASK FOR TWO MORE AT EACH VISIT FROM CASE MANAGEMENT. CM PROVIDED PT WITH HIS MEDICAID NUMBER. MAYRA MOURA AND FLOOR RENOVATOR NURSE NOTIFIED. Bertram Stanley. CASE MANAGEMENT DCP- Discharge Planning Updated by [email or web address]: Bertram Stanley on 08/20/19 2:[address] Patient Name: NOLVIA MARTIN Admission Status: ER Accout number: [id number] Admission Date: 08-15-2019 : 1990 Admission Diagnosis: Attending: JEANNE ZUNIGA Current LOS: 5 Anticipated DC Date: Planned Disposition: Home Primary Insurance: MEDICAID [place] PENDING Discharge Planning Comments: CM MET WITH PT IN ROOM TO DISCUSS DISCHARGE PLANNING AND NEEDS. PT REPORTS BEING HOMELESS AND HAS BEEN LIVING AT FRIENDS HOMES. PT REPORTS BEING INDEPENDENT IN HIS CARE. PT HAS NO MEDICAL EQUIPMENT AND NO OUTSIDE SERVICES ASSISTING IN THE HOME. CM DISCUSSED AVAILABILITY OF HOME HEALTH, REHAB SERVICES AND MEDICAL EQUIPMENT. PT DENIES DISCHARGE NEEDS, REPORTS HE WILL GO TO A FRIENDS HOME IN [place] AT DISCHARGE AND A FRIEND WILL PICK HIM UP FOR DISCHARGE HOME. CM DISCUSSED PT'S DRUG AND TOBACCO USE. PT DENIES NEED OF INFORMATION ON REHAB SERVICES OR COMMUNITY SUPPORT SERVICES. PT IS NOT INTERESTED IN STOPPING SMOKING CIGARETTES AND REPORTS HE IS FAMILIAR WITH ALL RESOURCES AND SUPPORT SERVICES FOR DRUG ADDICTION IN [place]. THE HOSPITAL HAS FILED FOR MEDICAID FOR PT, IT HAS YET TO BE APPROVED OR DENIED. PT PLANS TO DISCHARGE HOME WITH A FRIEND IN [place]. PT WILL PROVIDE ADDRESS AT DISCHARGE IF SERVICES NEED TO BE ARRANGED IN THE HOME. PT REPORTS A FRIEND WILL PICK HIM UP. PT HAS NO INSURANCE AT THIS TIME AND MAY NEED MEDICATION ASSISTANCE AT DISCHARGE. CM TO ASSESS CLOSER TO DISCHARGE AND NEEDS ARE IDENTIFIED. Oracle E Business Developer: Bertram Stanley DCPIA - Discharge Planning Initial Assessment Updated by [email or web address]: Bertram Stanley on 08/20/19 3:36 pm * Is the patient Alert and Oriented? Yes * How many steps to enter\\exit or inside your home? NONE * PCP NONE * Pharmacy [facility] ON [address] * Preadmission Environment Home with Family * ADLs Independent * Equipment None * Other Equipment NO MEDICAL EQUIPMENT PROVIDER PREFERENCE * List name and contact numbers for known caregivers / representatives who currently or will assist patient after discharge: PAOLA BRO, FRIEND, * Verbal permission to speak to the caregivers and representatives has been obtained from the patient. N/A * Community resources currently utilized None * Please name any agencies selected above. NONE * Additional services required to return to the preadmission environment? No * Can the patient safely return to the preadmission environment? Yes * Has this patient been hospitalized within the prior 30 days at any hospital? No Last DP export: 08/22/19 3:31 Patient Name: NOLVIA MARTIN Page [phone] at 1650 All edits/amendments must be made on the electronic document DICTATION DATE: 08/22/191649 DESIGN ENGINEERING MANAGER: RUBY 08/22/191649 RPT#: [id number] DC DATE: STATUS: ADM IN [facility] [address] [place] [address] END OF REPORT
--- NOTE | 2019-08-22 16:58 | NUR ---
PATIENT TO REFUSE FLU SHOT WHEN ASKED. STATES THAT HE IS "WALKING SEVERAL BLOCKS HOME HE HAS NO ONE TO GET HIM".
--- NOTE | 2019-08-22 17:35 | NUR ---
IV DISCONTINUED AND VERBALIZED UNDERSTANDING OF DISCHARGE INSTRUCTIONS. STABLE AT TIME OF DEPARTURE.
--- NOTE | 2019-08-25 17:02 | EC ---
PATIENT:NOLVIA MARTIN DATE OF SERVICE: 08/15/19 SEX: M MEDICAL RECORD: [id number] DATE OF : [birth year] LOCATION:D.M2 D.210 AGE OF PATIENT: 29 ADMISSION DATE: 08/15/19 REFERRING PHYSICIAN: INTERPRETING PHYSICIAN: VERITO HONG MD ECHOCARDIOGRAM REPORT ECHO CHARGES 4 ECHO COMPLETE Date: 08/17/19 CLINICAL DIAGNOSIS: METH USE ECHOCARDIOGRAPHIC MEASUREMENTS (adult normal given) AC root (d.<3.7cm) 3.2 cm LV Septum d (<1.2 cm> 1.2 cm Valve Excursion 2.4 cm LV Septum (systole) 2.0 cm Left Atria (s.<4.0cm> 3.7 cm LVPW d(<1.2cm) 1.3 cm RV (d.<2.3cm) 2.5 cm LVPW (sytole) 2.2 cm LV diastole(<5.6CM) 6.0 cm MV E-F(>70mm/sec) cm LV systole 3.4 cm LVOT Diameter 2.0 cm MV exc.(>10mm) cm Est.ejection fraction (50-75%) % DOPPLER: LVIT cm/sec A 73.0 cm/sec E 122 cm/sec LA cm/sec RVSP 37.3 mmHg LVOT 129 cm/sec AOP1/2T m/s Asc. Ao 203 cm/sec RVOT 68.0 cm/sec RA cm/sec PA 129 cm/sec AV Gradient Peak 17.0 mmHg AV Mean 8.3 mmHg AV Area 2.0 cm MV Gradient Peak 10.4 mmHg MV Mean 3.9 mmHg MV Area cm COMMENTS: Forestry Scientist: 1 BAR ANTONIOOE Rn Digestive: 1 Dr. Hong TAPE# PACS Pericardial Effusion N DATE OF SERVICE: ECHOCARDIOGRAM FINDINGS: 1. Left ventricular chamber size is mildly dilated. Left ventricular systolic function is preserved at 60%. 2. Left atrium is within normal limits at 3.7 cm. Right atrium and right ventricular chamber sizes are mildly dilated. 3. Valvular structures: Aortic valve has a definite abnormality of the right ECHOCARDIOGRAM REPORT [id number] NOLVIA MARTIN coronary cusp. This is possibly compatible with vegetative endocarditis versus discrete calcification on this area of the valve. The remaining valvular structures have normal structure and motion. 4. Doppler interrogation elsewise reveals mild mitral regurgitation, moderate tricuspid regurgitation. No other valvular insufficiency or stenosis. Pulmonary systolic pressure estimated 37 mmHg. 5. No evidence of pericardial effusion or left ventricular thrombus. 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 We would suggest transesophageal echo evaluation if clinical correlation with endocarditis is positive. TRANSINT:[id number] Voice Confirmation ID: [id number] DOCUMENT ID: [id number] VERITO HONG MD at 1702 CC: [id number] DICTATION DATE: 08/18/19 1055 OVERNIGHT BABYSITTER: 08/18/19 1107 DIS IN 08/22/19 [facility] [address] [place] [address]
--- NOTE | 2019-08-26 08:48 | TEE ---
PATIENT:NOLVIA MARTIN MEDICAL RECORD: [id number] LOCATION:D.M2 D.210 AGE OF PATIENT: 29 ADMISSION DATE: 08/15/19 SEX: M REFERRING PHYSICIAN: INTERPRETING PHYSICIAN: ZECHARIAH ORTIZ MD TRANSESOPHAGEAL ECHOCARDIOGRAM Date: 08/21/19 ESTEFANY CHARGE Y INDICATIONS: AORTIC VALVE VEGETATION/ AI PREMEDICATIONS: PATIENT'S RESPONSE PROCEDURE DOPPLER MEASUREMENTS: LVIT LA PA 129 RA LVOT 129 RVOT 68.0 Asc. Ao 203 AV Gradient Peak 17.0 AV Mean 8.3 AV Area 2.0 MV Gradient Peak 10.4 MV Mean 3.9 MV Area INTERPRETATION: Doppler: 2-D: COLOR FLOW DOPPLER NORMAL SALINE STUDY: MISCELLANOUS: DIAGNOSIS: PLAN: Lumber Bearer:3 Dr. Maynard Bridge Game Director: Jas RAYA COMMENTS: DATE OF SERVICE: 08/21/2019 PROCEDURE: Transesophageal Note DESCRIPTION OF PROCEDURE: After sedated wtih general sedation with TIVA via anesthesia, a transesophageal Omniplane probe was placed in the distal esophagus and proximal stomach without any difficulty. FINDINGS: No LVH. LV internal dimension is normal. Wall motion is normal. EF TRANSESOPHAGEAL ECHOCARDIOGRAM REPORT [id number] NOLVIA MARTIN is greater than or equal to 55%. Aortic valve is tricuspid. On the right coronary cusp there is noted to be a vegetation linear, this is a small structure, as well as mild plus AI. Left atrium is normal. Left atrial appendage is well visualized. Mitral valve appears normal. Trivial MR. Right-sided chambers were well visualized. These are normal in size and function. Tricuspid valve, normal size and function with trivial MR at the end of procedure. The Omniplane probe was turned posteriorly and this shows no atherosclerotic debris in the descending aorta. TRANSINT:[id number] Voice Confirmation ID: [id number] DOCUMENT ID: [id number] at 0848 CC: [id number] DICTATION DATE: 08/21/19 1425 BOX PRINTING MACHINE OPERATOR: 08/21/19 2215 DIS IN 08/22/19 [facility] [address] [place] [address]
== END 2019-08-22 17:35 | disposition home or self-care (01) | DRG 603 ==
LOC: D.ER 16:25 → D.M2 19:31
PROVIDERS: Family Medicine; Family Medicine Adult Medicine; ADMIT Internal Medicine Nephrology; ATTEND Internal Medicine Nephrology
DX: L03.115 Cellulitis of right lower limb (principal); L03.211 Cellulitis of face; F17.213 Nicotine dependence, cigarettes, with withdrawal; N17.9 Acute kidney failure, unspecified; L03.116 Cellulitis of left lower limb; F15.10 Other stimulant abuse, uncomplicated; B35.3 Tinea pedis; D64.9 Anemia, unspecified; Z59.0 Homelessness

== ENCOUNTER 2019-08-23 11:56 | Outpatient (CLI) | payer MEDICAID ==
[2019-08-19 16:23] VITALS: BMI 24.6
[~2019-08-23 11:56] MED LIST changes: +CLOTRIM ANTIFUN15 GM TOPICAL; +Triple Antibiotic Oi TOPICAL
--- NOTE | 2019-08-23 12:10 | NUR ---
PT ARRIVED TO ROOM VIA SELF AMBULATION, NO COMPLAINTS OR CONCERNS, REQUESTS LUNCH TRAY. CL IN REACH, SRX2.
--- NOTE | 2019-08-23 14:31 | NUR ---
ANTIBIOTIC ALMOST DONE. NO COMPLAITNS OR CONCERNS, ALL QUESTIONS ABOUT CONDITION ANSWERED TO THE BEST OF MY ABILITY. CL IN REACH, SRX2.
--- NOTE | 2019-08-23 15:36 | NUR ---
PT AMBULATED OUT PER SELF. NO COMPLAINTS//CONCERNS.
== END 2019-08-23 15:48 | disposition home or self-care (01) ==
LOC: D.M2 11:56 → D.OPS 11:56
PROVIDERS: ATTEND Family Medicine Adult Medicine
DX: I33.0 Acute and subacute infective endocarditis (principal)

== ENCOUNTER 2019-08-24 12:00 | Outpatient (CLI) | payer MEDICAID ==
[~2019-08-24] VITALS: Ht 177.8 cm; Wt 80.5 kg
--- NOTE | 2019-08-24 12:16 | NUR ---
PATIENT ARRIVED TO UNIT FOR ANTIBIOTICS TO BE ADMINISTERED VIA IV ROUTE SINCE OUT PATIENT IS NOT OPEN TODAY. PATIENT IS AMBULATORY, A&O, NO DISTRESS.
[2019-08-24 12:20] VITALS: BP 136/82
--- NOTE | 2019-08-24 12:32 | NUR ---
22 GAUGE IV PLACED TO LEFT HAND X 1 STICK. GOOD BLOOD RETURN, EASY FLUSH. TAPED, DATED AND SECURED. PATIENT TOLERATED IV PLACEMENT WELL.
--- NOTE | 2019-08-24 12:53 | NUR ---
IV VANC INFUSING AT THIS TIME ORDERED. PATIENT LYING IN BED, NOON MEAL PROVIDED AND HAS BEEN CONSUMED. NO DISTRESS.
[2019-08-24 12:58] VITALS: BP 136/82; Ht 177.8 cm; Wt 80.5 kg
--- NOTE | 2019-08-24 13:39 | NUR ---
TOLERATING IV ABX WELL. NO DISTRESS.
--- NOTE | 2019-08-24 14:21 | NUR ---
22 GAUGE IV REMOVED FROM LEFT HAND. CATHETER TIP INTACT. NO BLEEDING FROM SITE AFTER PRESSURE HELD X 1 MINUTE. 2X2 GAUZE APPLIED AND SECURED WITH BANDAID. TOLERATED IV REMOVAL WELL. PATIENT TO BE DISCHARGED.
--- NOTE | 2019-08-24 14:35 | NUR ---
PATIENT COMPLETED HIS ANTIBIOTICS. PATIENT DISCHARGED IN STABLE CONDITION. PATIENT INSTRUCTED TO RETURN TO OUT PATIENT TOMORROW FOR ANTIBIOTICS. PATIENT VERBALIZED UNDERSTANDING OF INSTRUCTIONS PROVIDED.
== END 2019-08-24 14:35 | disposition home or self-care (01) ==
LOC: D.OPS → D.M2 12:03 → D.OPS 14:35
PROVIDERS: ATTEND Family Medicine Adult Medicine
DX: I33.0 Acute and subacute infective endocarditis (principal)

== ENCOUNTER 2019-09-11 18:06 | Inpatient (IN) | payer MEDICAID ==
[~2019-09-11] VITALS: Ht 177.8 cm; Wt 81.2 kg
[2019-09-11 19:00] VITALS: BP 133/88
[2019-09-11 21:42] LABS: BASOPHILS 0.2 % (0-2); EOSINOPHILS 3.8 % (0-7); HEMATOCRIT 43.4 % (42.0-54.0); HEMOGLOBIN 14.5 g/dL (13.5-17.5); IMMATURE GRANULOCYTES 0.2 % (0-5); LYMPHOCYTES 33.5 % (15-50); MCH 29.8 pg (26.0-34.0); MCHC 33.4 g/dL (31.0-37.0); MCV 89.1 fL (80.0-100.0); MEAN PLATELET VOLUME 9.8 fL (7.4-10.4); MONOCYTES 7.9 % (2-11); NEUTROPHILS 54.4 % (40-80); PLATELET COUNT 228 10x3/uL (130-400); RBC 4.87 10x6/uL (4.20-6.10); RDW 13.4 % (11.5-14.5)
[2019-09-11 21:49] LABS: CALC OSMOLALITY 283 mosm/kg (275-300); CALCIUM 9.4 mg/dL (8.5-10.1); CARBON DIOXIDE 31.6 mmol/L (21.0-32.0); CHLORIDE - SERUM 104 mmol/L (98-107); CREATININE - SERUM 0.9 mg/dL (0.6-1.3); GLUCOSE 116 mg/dL (74-106); SODIUM 140 mmol/L (136-145); UREA NITROGEN 23 mg/dL (7-18); eGFR NON AFRICAN AMERICAN > 90 mL/min (90-120)
[2019-09-11 21:55] LABS: ALBUMIN 3.4 g/dL (3.4-5.0); ALKALINE PHOSPHATASE 87 U/L (46-116); ALT (SGPT) 23 U/L (10-68); BILIRUBIN - TOTAL 0.35 mg/dL (0.2-1.3); PROTEIN - SERUM 6.8 g/dL (6.4-8.2)
--- NOTE | 2019-09-11 22:00 | NUR ---
PT GIVEN PUDDING, CRACKERS, AND COKE TO DRINK
[2019-09-12 01:01] VITALS: BP 148/90; BMI 26.3
--- NOTE | 2019-09-12 02:23 | NUR ---
EXPLAINED TO PATIENT THAT A UA WAS ORDERED. GAVE PATIENT A SPECIMEN CUP. PATIENT STATED HE WILL PROVIDE ONE THE NEXT TIME HE URINATES.
[2019-09-12 04:00] VITALS: BP 123/76
[2019-09-12 05:09] LABS: BASOPHILS 0.2 % (0-2); EOSINOPHILS 4.2 % (0-7); HEMATOCRIT 43.3 % (42.0-54.0); HEMOGLOBIN 14.2 g/dL (13.5-17.5); IMMATURE GRANULOCYTES 0.2 % (0-5); LYMPHOCYTES 29.8 % (15-50); MCH 29.5 pg (26.0-34.0); MCHC 32.8 g/dL (31.0-37.0); MCV 89.8 fL (80.0-100.0); MEAN PLATELET VOLUME 9.9 fL (7.4-10.4); MONOCYTES 10.4 % (2-11); NEUTROPHILS 55.2 % (40-80); PLATELET COUNT 212 10x3/uL (130-400); RBC 4.82 10x6/uL (4.20-6.10); RDW 13.5 % (11.5-14.5); WBC 9.5 10x3/uL (4.8-10.8)
[2019-09-12 05:45] LABS: CALC OSMOLALITY 280 mosm/kg (275-300); CALCIUM 8.8 mg/dL (8.5-10.1); CHLORIDE - SERUM 105 mmol/L (98-107); CREATININE - SERUM 0.9 mg/dL (0.6-1.3); GLUCOSE 106 mg/dL (74-106); MAGNESIUM - SERUM 1.6 mg/dL (1.8-2.4); PHOSPHOROUS 4.8 mg/dL (2.5-4.9); POTASSIUM - SERUM 3.7 mmol/L (3.5-5.1); SODIUM 140 mmol/L (136-145); UREA NITROGEN 19 mg/dL (7-18); eGFR NON AFRICAN AMERICAN > 90 mL/min (90-120)
[2019-09-12 08:59] LABS: UDS - AMPHET POSITIVE QUAL (NEGATIVE); UDS - BARB NEGATIVE QUAL (NEGATIVE); UDS - BENZO NEGATIVE QUAL (NEGATIVE); UDS - COCAINE NEGATIVE QUAL (NEGATIVE); UDS - OPIATE NEGATIVE QUAL (NEGATIVE); UDS - PCP NEGATIVE QUAL (NEGATIVE); UDS - THC NEGATIVE QUAL (NEGATIVE)
[2019-09-12 09:28] LABS: APPEARANCE CLEAR (CLEAR); BILIRUBIN NEGATIVE (NEGATIVE); COLOR YELLOW (YELLOW); GLUCOSE NEGATIVE (NEGATIVE); KETONE NEGATIVE (NEGATIVE); NITRITE NEGATIVE (NEGATIVE); PROTEIN NEGATIVE (NEGATIVE); SPECIFIC GRAVITY 1.025 (1.005-1.020); UROBILINOGEN NORMAL (NORMAL)
[2019-09-12 09:30] VITALS: BP 121/78
[2019-09-12 15:00] VITALS: BP 142/76
--- NOTE | 2019-09-12 16:35 | MORECARE ---
CASE MANAGEMENT DISCHARGE SUMMARY PATIENT: NOLVIA MARTIN UNIT: [id number] ADM DATE: 09/11/19 AGE: 29 : [birth year] SEX: M ROOM/BED: D.2114 AUTHOR: KATHERINE PINEDA PHYSICIAN: REFERRING PHYSICIAN: CARISA ADAMS MD DATE OF SERVICE: 09/12/19 Discharge Plan Patient Name: NOLVIA MARTIN Facility: [facility]:[place] : 1990 Planned Disposition: Outpatient clinics\services (Programs) Anticipated Discharge Date: 09/15/19 Discharge Date: Expected LOS: 4 Initial Reviewer: [email or web address] Initial Review Date: 09/12/2019 Generated: 09/12/19 5:34 pm DCPIA - Discharge Planning Initial Assessment Updated by [email or web address]: Bertram Stanley on 09/12/19 4:35 pm * Is the patient Alert and Oriented? Yes * How many steps to enter\exit or inside your home? * PCP NONE * Pharmacy [facility] ON [address] * Preadmission Environment Home with Family * ADLs Independent * Equipment None * Other Equipment NO MEDICAL EQUIPMENT PROVIDER PREFERENCE * List name and contact numbers for known caregivers / representatives who currently or will assist patient after discharge: PAOLA CRABTREE, FRIEND, * Verbal permission to speak to the caregivers and representatives has been obtained from the patient. N/A * Community resources currently utilized None * Please name any agencies selected above. NONE * Additional services required to return to the preadmission environment? Yes * Can the patient safely return to the preadmission environment? Yes * Has this patient been hospitalized within the prior 30 days at any hospital? Yes Patient Name: NOLVIA MARTIN Page [phone] at 1635 All edits/amendments must be made on the electronic document DICTATION DATE: 09/12/191634 INCIDENT RESPONSE CONSULTANT: RUBY 09/12/191634 RPT#: [id number] DC DATE: STATUS: ADM IN [facility] [address] [place] [address] END OF REPORT
--- NOTE | 2019-09-12 16:43 | MORECARE ---
CASE MANAGEMENT DISCHARGE SUMMARY PATIENT: NOLVIA MARTIN UNIT: [id number] ADM DATE: 09/11/19 AGE: 29 : [birth year] SEX: M ROOM/BED: D.3484 AUTHOR: MIRIAM,DOC PHYSICIAN: REFERRING PHYSICIAN: CARISA ADAMS MD DATE OF SERVICE: 09/12/19 Discharge Plan Patient Name: NOLVIA MARTIN Facility: [facility]:[place] : 1990 Planned Disposition: Outpatient clinics\\services (Programs) Anticipated Discharge Date: 09/15/19 Discharge Date: Expected LOS: 4 Initial Reviewer: [email or web address] Initial Review Date: 09/12/2019 Generated: 09/12/19 5:42 pm Comments DCP- Discharge Planning Updated by [email or web address]: Bertram Stanley on 09/12/19 3:[address] Patient Name: NOLVIA MARTIN Admission Status: ER Accout number: [id number] Admission Date: 09-11-2019 : 1990 Admission Diagnosis: Attending: CARISA LEZAMA Current LOS: 1 Anticipated DC Date: 09-15-2019 Planned Disposition: Outpatient clinics\\services (Programs) Primary Insurance: MEDICAID [place] PLANNED EXTERNAL PROVIDER: [facility] OUTPATIENT Discharge Planning Comments: CM MET WITH PT IN ROOM TO DISCUSS DISCHARGE PLANNING AND NEEDS. PT REPORTS LIVING AT HOME INDEPENDENTLY WITH A FRIEND ON [address]. PT HAS NO MEDICAL EQUIPMENT AND NO OUTSIDE SERVICES ASSISTING IN THE HOME. CM DISCUSSED AVAILABILITY OF HOME HEALTH, REHAB SERVICES AND MEDICAL EQUIPMENT. PT REPORTS HE CAN GO TO OUTPATIENT INFUSION AGAIN IT IS WALKING DISTANCE TO THE HOSPITAL FROM HOME. PT REPORTS HE LEFT OUT OF TOWN FOR THANKSGIVING AND GOT " STUCK OUT OF TOWN", PT REPORTS WALKING HOME AT DISCHARGE.CM PROVIDED PT WITH HIS MEDICAID NUMBER AND PHONE NUMBER FOR MEDICAID TRANSPORTATION, EDUCATED ON SERVICE AND INSTRUCTED TO CALL AND CERTIFY FOR THE SERVICES. PT REPORTS UNDERSTANDING. CM CALLED OUTPATIENT AT [facility], SPOKE TO RICHARD WHO INFORMED CM THAT PT WILL NEED NEW OUTPATIENT ORDERS FOR INFUSION TO CONTINUE. CM NOTIFIED MAYRA MOURA AND DR. ADAMS. PT PLANS TO RETURN HOME WITH FRIEND, IS WALKING DISTANCE FROM HOSPITAL AND HAS AVAILABILITY OF MEDICAID TRANSPORTATION IF HE WILL ENROLL. OUTPATIENT NEEDS NEW ORDERS FOR INFUSION FOR CM TO ARRANGE. Therapy Technician: Bertram Stanley DCPIA - Discharge Planning Initial Assessment Updated by [email or web address]: Bertram Stanley on 09/12/19 4:35 pm * Is the patient Alert and Oriented? Yes * How many steps to enter\\exit or inside your home? * PCP NONE * Pharmacy [facility] ON [address] * Preadmission Environment Home with Family * ADLs Independent * Equipment None * Other Equipment NO MEDICAL EQUIPMENT PROVIDER PREFERENCE * List name and contact numbers for known caregivers / representatives who currently or will assist patient after discharge: PAOLA CRABTREE, FRIEND, * Verbal permission to speak to the caregivers and representatives has been obtained from the patient. N/A * Community resources currently utilized None * Please name any agencies selected above. NONE * Additional services required to return to the preadmission environment? Yes * Can the patient safely return to the preadmission environment? Yes * Has this patient been hospitalized within the prior 30 days at any hospital? Yes Last DP export: 09/12/19 3:35 Patient Name: NOLVIA MARTIN Page [phone] at 1643 All edits/amendments must be made on the electronic document DICTATION DATE: 09/12/191641 MACHINE CLOTHING REPLACER: RUBY 09/12/191641 RPT#: [id number] GA DATE: STATUS: ADM IN [facility] [address] [place] [address] END OF REPORT
--- NOTE | 2019-09-12 19:48 | NUR ---
RECEIVED REPORT, WILL ASSUME CARE OF PT, DENIES ANY NEEDS AT THIS TIME, BED IS LOW, SRX2, CALL LIGHT IN REACH, WILL CONTINUE PLAN OF CARE,
[2019-09-12 20:00] VITALS: BP 141/84
[2019-09-13] VITALS (7 sets, daily range): BP systolic 121–149; BP diastolic 61–88
--- NOTE | 2019-09-13 02:17 | NUR ---
I have reviewed this patient and I concur with the Shift Assessment completed by the Licensed Practical Nurse today this shift.
[2019-09-13 04:17] LABS: BASOPHILS 0.2 % (0-2); EOSINOPHILS 2.9 % (0-7); HEMATOCRIT 42.7 % (42.0-54.0); HEMOGLOBIN 14.2 g/dL (13.5-17.5); IMMATURE GRANULOCYTES 0.2 % (0-5); MCH 29.8 pg (26.0-34.0); MCHC 33.3 g/dL (31.0-37.0); MCV 89.7 fL (80.0-100.0); MEAN PLATELET VOLUME 9.8 fL (7.4-10.4); MONOCYTES 7.5 % (2-11); NEUTROPHILS 76.2 % (40-80); PLATELET COUNT 196 10x3/uL (130-400); RBC 4.76 10x6/uL (4.20-6.10); RDW 13.3 % (11.5-14.5)
[2019-09-13 04:23] LABS: WBC 13.3 10x3/uL (4.8-10.8)
[2019-09-13 04:36] LABS: CALC OSMOLALITY 274 mosm/kg (275-300); CALCIUM 8.5 mg/dL (8.5-10.1); CHLORIDE - SERUM 104 mmol/L (98-107); CREATININE - SERUM 0.8 mg/dL (0.6-1.3); GLUCOSE 107 mg/dL (74-106); MAGNESIUM - SERUM 1.9 mg/dL (1.8-2.4); SODIUM 137 mmol/L (136-145); UREA NITROGEN 15 mg/dL (7-18); eGFR NON AFRICAN AMERICAN > 90 mL/min (90-120)
[2019-09-13 04:42] LABS: PHOSPHOROUS 3.5 mg/dL (2.5-4.9); POTASSIUM - SERUM 4.6 mmol/L (3.5-5.1)
--- NOTE | 2019-09-13 07:15 | NUR ---
RECEIVED PT IN BED EYES CLOSED RESP UNLABORED SKIN W/D COLOR WNL NAD NOTED
--- NOTE | 2019-09-13 19:33 | NUR ---
RECEIVED REPORT, WILL ASSUME CARE OF PT, LYING ON L.SIDE, RESTING. DENIES ANY NEEDS AT THIS TIME, BED IS LOW, SRX2, CALL LIGHT IN REACH, WILL CONTINUE PLAN OF CARE
--- NOTE | 2019-09-14 01:43 | NUR ---
I have reviewed this patient and I concur with the Shift Assessment completed by the Licensed Practical Nurse today this shift.
[2019-09-14 04:00] VITALS: BP 113/66
[2019-09-14 05:55] LABS: BASOPHILS 0.5 % (0-2); EOSINOPHILS 7.3 % (0-7); HEMOGLOBIN 13.2 g/dL (13.5-17.5); IMMATURE GRANULOCYTES 0.2 % (0-5); LYMPHOCYTES 45.1 % (15-50); MCH 29.3 pg (26.0-34.0); MCV 88.9 fL (80.0-100.0); MONOCYTES 8.5 % (2-11); NEUTROPHILS 38.4 % (40-80); PLATELET COUNT 170 10x3/uL (130-400); RDW 13.3 % (11.5-14.5)
[2019-09-14 06:07] LABS: CALC OSMOLALITY 281 mosm/kg (275-300); CALCIUM 8.4 mg/dL (8.5-10.1); CARBON DIOXIDE 29.2 mmol/L (21.0-32.0); CHLORIDE - SERUM 108 mmol/L (98-107); CREATININE - SERUM 0.8 mg/dL (0.6-1.3); GLUCOSE 101 mg/dL (74-106); MAGNESIUM - SERUM 1.8 mg/dL (1.8-2.4); PHOSPHOROUS 3.8 mg/dL (2.5-4.9); POTASSIUM - SERUM 4.3 mmol/L (3.5-5.1); SODIUM 141 mmol/L (136-145); UREA NITROGEN 16 mg/dL (7-18); eGFR NON AFRICAN AMERICAN > 90 mL/min (90-120)
[2019-09-14 06:08] LABS: WBC 6.6 10x3/uL (4.8-10.8)
--- NOTE | 2019-09-14 07:03 | NUR ---
RECEIVED PT TO ROOM 2114 VIA W/C FROM ER DX CHEST PAIN AOOX4 RESP UNLABORED SKIN W/D COLOR WNL RAC 20 GA IV CATHETER INTACT WITH OCCLUSIVE DRSG SITE FREE OF REDNESS OR EDEMA TELEMETRY SR RATE 60 PT STATES CHEST PAIN FEELS LIKE PRESSURE /10 WILL CONTINUE TO MONITOR
--- NOTE | 2019-09-14 07:15 | NUR ---
RECEIVED PT IN BED EYES CLOSED RESP UNLABORED NAD NOTED
[2019-09-14 09:00] VITALS: BP 137/79
--- NOTE | 2019-09-14 09:45 | NUR ---
IV INFILTRATED TO RFA IV CATHETER DCD WITH CATHETER INTACT SITE NOTED WITH REDNESS OR EDEMA RESITED IV TO RFA WITH 22 GA IV CATHETER USING ASEPTIC TECHNIQUE X 1 STICK PT TOLERATED WELL
[2019-09-14 13:04] VITALS: BP 137/81
--- NOTE | 2019-09-14 17:38 | NUR ---
RECEIVED REPORT, WILL ASSUME CARE OF PT, PT IS RESTING, DENIES ANY NEEDS AT THIS TIME, BED IS LOW, SRX2, CALL LIGHT IN REACH, WILL CONTINUE PLAN OF CARE
[2019-09-14 17:42] VITALS: BP 145/88
[2019-09-14 20:46] VITALS: BP 137/84
[2019-09-15] VITALS: BP 137/88
--- NOTE | 2019-09-15 04:22 | NUR ---
I have reviewed this patient and I concur with the Shift Assessment completed by the Licensed Practical Nurse today this shift.
[2019-09-15 04:30] VITALS: BP 140/93
[2019-09-15 06:01] LABS: BASOPHILS 0.8 % (0-2); EOSINOPHILS 7.7 % (0-7); HEMATOCRIT 41.6 % (42.0-54.0); HEMOGLOBIN 13.8 g/dL (13.5-17.5); IMMATURE GRANULOCYTES 0.3 % (0-5); LYMPHOCYTES 43.9 % (15-50); MCH 29.7 pg (26.0-34.0); MCHC 33.2 g/dL (31.0-37.0); MCV 89.5 fL (80.0-100.0); MEAN PLATELET VOLUME 10.3 fL (7.4-10.4); MONOCYTES 7.5 % (2-11); NEUTROPHILS 39.8 % (40-80); PLATELET COUNT 184 10x3/uL (130-400); RBC 4.65 10x6/uL (4.20-6.10); RDW 13.4 % (11.5-14.5); WBC 7.7 10x3/uL (4.8-10.8)
[2019-09-15 06:36] LABS: CALC OSMOLALITY 279 mosm/kg (275-300); CALCIUM 8.6 mg/dL (8.5-10.1); CARBON DIOXIDE 28.3 mmol/L (21.0-32.0); CHLORIDE - SERUM 105 mmol/L (98-107); CREATININE - SERUM 0.9 mg/dL (0.6-1.3); GLUCOSE 105 mg/dL (74-106); MAGNESIUM - SERUM 1.9 mg/dL (1.8-2.4); PHOSPHOROUS 4.1 mg/dL (2.5-4.9); POTASSIUM - SERUM 4.3 mmol/L (3.5-5.1); SODIUM 140 mmol/L (136-145); UREA NITROGEN 15 mg/dL (7-18); eGFR NON AFRICAN AMERICAN > 90 mL/min (90-120)
[2019-09-15 08:02] VITALS: BP 147/82
[2019-09-15 11:56] VITALS: BP 141/84
[2019-09-15 17:20] VITALS: BP 143/83
--- NOTE | 2019-09-15 19:05 | NUR ---
RECEIVED BEDSIDE REPORT. PATIENT IS ALERT AND ORIENTED, RESTING COMFORTABLY IN BED. RESPIRATIONS ARE EVEN AND UNLABORED. NO S/S OF DISTRESS. NO C/O PAIN. CALL LIGHT WITHIN REACH. WILL CPOC.
[2019-09-15 20:30] VITALS: BP 133/83
--- NOTE | 2019-09-15 23:50 | NUR ---
REPORT RECIEVED AND ROUNDING COMPLETE. PATIENT LATYING IN BED ASKING FOR ICE CREAM AND SODA. RETREIVED FOR PATIENT. PATIENT HAS A RIGHT FOREARM PIV, PIV SHOWING NO S/SX OF INFILTRATION. PIV PATENT. PATIENT SHOWING NO S/SX OF DISTRESS AT THIS TIME. CALL LIGHT WITHIN REACH AND BED IN LOWEST LOCKED POSITION. PATIENT ALERT AND ORIENTED X4.
[2019-09-16] VITALS: BP 140/84
[2019-09-16 04:30] VITALS: BP 154/83
[2019-09-16 06:15] LABS: BASOPHILS 0.4 % (0-2); EOSINOPHILS 6.8 % (0-7); HEMATOCRIT 41.9 % (42.0-54.0); IMMATURE GRANULOCYTES 0.1 % (0-5); LYMPHOCYTES 40.7 % (15-50); MCH 29.5 pg (26.0-34.0); MCHC 33.4 g/dL (31.0-37.0); MCV 88.4 fL (80.0-100.0); MEAN PLATELET VOLUME 10.6 fL (7.4-10.4); MONOCYTES 7.3 % (2-11); NEUTROPHILS 44.7 % (40-80); PLATELET COUNT 208 10x3/uL (130-400); RBC 4.74 10x6/uL (4.20-6.10); WBC 8.4 10x3/uL (4.8-10.8)
[2019-09-16 06:38] LABS: CALC OSMOLALITY 279 mosm/kg (275-300); CALCIUM 8.8 mg/dL (8.5-10.1); CARBON DIOXIDE 29.3 mmol/L (21.0-32.0); CHLORIDE - SERUM 103 mmol/L (98-107); CREATININE - SERUM 0.8 mg/dL (0.6-1.3); GLUCOSE 91 mg/dL (74-106); POTASSIUM - SERUM 4.2 mmol/L (3.5-5.1); SODIUM 140 mmol/L (136-145); UREA NITROGEN 16 mg/dL (7-18); eGFR NON AFRICAN AMERICAN > 90 mL/min (90-120)
[2019-09-16 06:47] LABS: PHOSPHOROUS 5.2 mg/dL (2.5-4.9)
[2019-09-16 10:09] VITALS: BP 135/84
--- NOTE | 2019-09-16 13:07 | EC ---
PATIENT:NOLVIA MARTIN DATE OF SERVICE: 09/11/19 SEX: M MEDICAL RECORD: [id number] DATE OF : [birth year] LOCATION:D. D.211 AGE OF PATIENT: 29 ADMISSION DATE: 09/11/19 REFERRING PHYSICIAN: INTERPRETING PHYSICIAN: ZECHARIAH ORTIZ MD ECHOCARDIOGRAM REPORT ECHO CHARGES 5 ECHO LIMITED Date: 09/13/19 CLINICAL DIAGNOSIS: SBE ASSESS EF ECHOCARDIOGRAPHIC MEASUREMENTS (adult normal given) AC root (d.<3.7cm) cm LV Septum d (<1.2 cm> cm Valve Excursion cm LV Septum (systole) cm Left Atria (s.<4.0cm> cm LVPW d(<1.2cm) cm RV (d.<2.3cm) cm LVPW (sytole) cm LV diastole(<5.6CM) cm MV E-F(>70mm/sec) cm LV systole cm LVOT Diameter cm MV exc.(>10mm) cm Est.ejection fraction (50-75%) % DOPPLER: LVIT cm/sec A cm/sec E cm/sec LA cm/sec RVSP mmHg LVOT cm/sec AOP1/2T m/s Asc. Ao cm/sec RVOT cm/sec RA cm/sec PA cm/sec AV Gradient Peak mmHg AV Mean mmHg AV Area cm MV Gradient Peak mmHg MV Mean mmHg MV Area cm COMMENTS: Historiography Teacher: Kj ASENCIO Cotton Farmworker: 3 Dr. Maynard TAPE# PACS Pericardial Effusion N DATE OF SERVICE: Adequate 2D, 2D only. No LVH. LV internal dimension is normal. Wall motion is normal. EF is greater than or equal to 55%. Aortic valve is tricuspid. There still appears to be a small tiny miniscule linear density on the right coronary cusp of the aortic valve. The valve coaptation point appears normal. Left atrium appears normal. Mitral valve appears normal with good valve excursion. Right-sided chambers appear normal with no significant tricuspid valve abnormality. ECHOCARDIOGRAM REPORT [id number] NOLVIA MARTIN TRANSINT:[id number] Voice Confirmation ID: [id number] DOCUMENT ID: [id number] ZECHARIAH ORTIZ MD at 1307 CC: [id number] DICTATION DATE: 09/14/19 1045 MIDDLEWARE DEVELOPER: 09/14/192206 ADM IN [facility] [address] [place] [address]
[2019-09-16 14:12] VITALS: BP 135/91
[2019-09-16 19:00] VITALS: BP 145/90
--- NOTE | 2019-09-16 19:31 | NUR ---
RECEIVED BEDSIDE REPORT. PATIENT IS ALERT AND ORIENTED, RESTING COMFORTABLY IN BED. RESPIRATIONS ARE EVEN AND UNLABORED. NO S/S OF DISTRESS. NO C/OPAIN. CALL LIGHT WITHIN REACH. DENIES NEEDS AT THIS TIME. WILL CPOC.
[2019-09-16 20:00] VITALS: BP 154/84
[2019-09-17 01:21] VITALS: BP 145/69
[2019-09-17 04:00] VITALS: BP 144/79
[2019-09-17 08:00] VITALS: BP 142/86
[2019-09-17 12:16] VITALS: BP 144/78
[2019-09-17 12:54] VITALS: Ht 177.8 cm; Wt 81.2 kg
[2019-09-17 15:47] VITALS: BP 130/68
--- NOTE | 2019-09-17 19:20 | NUR ---
RECEIVED BEDSIDE REPORT. PATIENT IS ALERT AND ORIENTED, RESTING COMFORTABLY IN BED. RESPIRATIONS ARE EVEN AND UNLABORED. NO S/S OF DISTRESS. TYLENOL GIVEN FOR C/O HEADACHE. CALL LIGHT WITHIN REACH. WILL CPOC.
[2019-09-17 20:00] VITALS: BP 121/71
[2019-09-18] VITALS: BP 132/73
[2019-09-18 04:00] VITALS: BP 129/60
[2019-09-18 06:27] LABS: CALC OSMOLALITY 279 mosm/kg (275-300); CALCIUM 8.5 mg/dL (8.5-10.1); CARBON DIOXIDE 28.5 mmol/L (21.0-32.0); CHLORIDE - SERUM 106 mmol/L (98-107); CREATININE - SERUM 0.9 mg/dL (0.6-1.3); GLUCOSE 97 mg/dL (74-106); POTASSIUM - SERUM 4.2 mmol/L (3.5-5.1); SODIUM 139 mmol/L (136-145); UREA NITROGEN 19 mg/dL (7-18); eGFR NON AFRICAN AMERICAN > 90 mL/min (90-120)
[2019-09-18 07:15] LABS: BASOPHILS 0.6 % (0-2); EOSINOPHILS 10.3 % (0-7); HEMATOCRIT 44.3 % (42.0-54.0); HEMOGLOBIN 14.7 g/dL (13.5-17.5); IMMATURE GRANULOCYTES 0.3 % (0-5); LYMPHOCYTES 39.7 % (15-50); MCH 29.6 pg (26.0-34.0); MCHC 33.2 g/dL (31.0-37.0); MCV 89.1 fL (80.0-100.0); MEAN PLATELET VOLUME 10.2 fL (7.4-10.4); MONOCYTES 6.5 % (2-11); NEUTROPHILS 42.6 % (40-80); PLATELET COUNT 216 10x3/uL (130-400); RBC 4.97 10x6/uL (4.20-6.10); RDW 13.3 % (11.5-14.5); WBC 10.1 10x3/uL (4.8-10.8)
--- NOTE | 2019-09-18 07:22 | NUR ---
REPORT RECEIVED FROM METAL SHAPING MACHINE OPERATOR AND PATIENT CARE ASSUMED. PATIENT LAYING IN BED ON RT SIDE WITH EYES CLOSED AND BREATHING EVENLY. WILL CONTINUE WITH PLAN OF CARE. SR UP X 2 BED IN LOW POSITION AND CALL LIGHT IN REACH.
[2019-09-18 10:39] VITALS: BP 136/80
[2019-09-18 13:19] VITALS: BP 140/78
--- NOTE | 2019-09-18 13:34 | NUR ---
PATIENT SITTING UP IN BED WATCHING TV. PATIENT IS STABLE AND VSS. PATIENT DENIES ANY NEEDS OR PAIN. WILL CONTINUE TO MONITOR. SR UP X 2 BED IN LOW POSITION AND CALL LIGHT IN REACH.
--- NOTE | 2019-09-18 15:25 | CN ---
PATIENT NAME:NOLVIA MARTIN MEDICAL RECORD: [id number] : [birth year] LOCATION:D. D.2114 ADMIT DATE: 09/11/19 ACCOUNT: [id number] CONSULTING PHYSICIAN: VERITO SLOAN MD REFERRING PHYSICIAN: CARISA ADAMS MD DATE OF CONSULTATION: 09/12/2019 DIAGNOSES: 1. Endocarditis. 2. Shortness of breath. 3. Aortic insufficiency. 4. Polysubstance abuse. HISTORY OF PRESENT ILLNESS: This is a gentleman with an IV drug problem who was recently diagnosed with aortic valve endocarditis by transesophageal echo by Dr. Maynard. He received IV antibiotics, was discharged here out of here to receive continued IV antibiotics, but failed to be compliant with that. He now comes for readmission to continue IV antibiotics. His only real symptom is mild shortness of breath. He had mild aortic insufficiency, preserved LV function on the echocardiogram and transesophageal echocardiogram. PHYSICAL EXAMINATION: CONSTITUTIONAL/GENERAL APPEARANCE: Well nourished, well developed, appears stated age. EYES: Lids and conjunctivae noninjected. No discharge. No pallor. ENT: Lips within normal limit. No cyanosis. No pallor. NECK: Carotid arteries, bilateral normal upstroke. No bruits. No thrills. No jugular venous pressure or distention. CERVICAL LYMPH NODES: Nontender. Nonenlarged. THYROID: Not enlarged. No nodules. CARDIOVASCULAR: Precordial exam, nondisplaced. No heaves or pericardial thrills. Rate and rhythm, regular. Heart sounds, normal S1, normal S2. No S3, no gallop, no rub. Systolic murmur, not heard. Diastolic murmur, not heard. RESPIRATORY: Respiratory effort, unlabored. Normal curvature. No thoracic deformity. No chest wall tenderness. Percussion, resonant. Auscultation, clear. No wheezes, no rales, no rhonchi. ABDOMEN: Soft, nondistended, nontender. No abdominal pain, no vomiting and normal appetite. MUSCULOSKELETAL: No joint tenderness, normal gait, normal tone. SKIN: Warm and dry. OVERALL IMPRESSION: Endocarditis this time, obviously compliance is an issue. He may be better served being transferred to [facility] where infectious disease can be involved and make long-term decisions regarding his endocarditis. At this time, he has restarted his IV antibiotics. No other cardiac workup or treatment is necessary. TRANSINT:[id number] Voice Confirmation ID: [id number] DOCUMENT ID: [id number] CONSULT REPORT [id number] NOLVIA MARTIN, VERITO HALL at 1525 CC: [id number] DICTATION DATE: 09/12/19827 PAN OPERATOR: 09/12/19853 ADM IN [facility] [id number] [place] [address]
--- NOTE | 2019-09-18 16:49 | NUR ---
PATIENT IS STABLE AND VSS. PATIENT SITTING UP IN BED WATCHING TV. PATIENT DENIES ANY NEEDS OR PAIN. WILL CONTINUE TO MONITOR. SR UP X2 BED IN LOW POSITION AND CALL LIGHT IN REACH.
[2019-09-18 18:10] VITALS: BP 146/84
--- NOTE | 2019-09-18 19:48 | NUR ---
RECEIVED BEDSIDE REPORT. PATIENT IS ALERT AND ORIENTED, RESTING COMFORTABLY IN BED. RESPIRATIONS ARE EVEN AND UNLABORED. NO S/S OF DISTRESS. NO C/OPAIN. CALL LIGHT WITHIN REACH. DENIES NEEDS. WILL CPOC.
[2019-09-18 20:00] VITALS: BP 140/1
[2019-09-19] VITALS: BP 132/76
[2019-09-19 04:00] VITALS: BP 131/76
[2019-09-19 05:23] LABS: BASOPHILS 0.3 % (0-2); EOSINOPHILS 8.4 % (0-7); HEMATOCRIT 43.3 % (42.0-54.0); HEMOGLOBIN 14.3 g/dL (13.5-17.5); IMMATURE GRANULOCYTES 0.5 % (0-5); LYMPHOCYTES 41.8 % (15-50); MCH 29.5 pg (26.0-34.0); MCV 89.3 fL (80.0-100.0); MEAN PLATELET VOLUME 10.1 fL (7.4-10.4); PLATELET COUNT 195 10x3/uL (130-400); RBC 4.85 10x6/uL (4.20-6.10); RDW 13.2 % (11.5-14.5); WBC 9.4 10x3/uL (4.8-10.8)
[2019-09-19 05:49] LABS: CALC OSMOLALITY 280 mosm/kg (275-300); CALCIUM 8.5 mg/dL (8.5-10.1); CARBON DIOXIDE 27.2 mmol/L (21.0-32.0); CHLORIDE - SERUM 106 mmol/L (98-107); CREATININE - SERUM 0.9 mg/dL (0.6-1.3); GLUCOSE 96 mg/dL (74-106); POTASSIUM - SERUM 4.2 mmol/L (3.5-5.1); SODIUM 139 mmol/L (136-145); UREA NITROGEN 21 mg/dL (7-18); eGFR NON AFRICAN AMERICAN > 90 mL/min (90-120)
--- NOTE | 2019-09-19 07:10 | NUR ---
REPORT RECEVED FROM SENIOR SYSTEMS ENGINEER AND PATIENT CARE ASSUMED. PATIENT LAYING IN BED ON BACK WITH EYES CLOSED AND BREATHING EVENLY. PATIENT IS STABLE AND VSS. WILL CONTINUE WITH PLAN OF CARE. SR UP X 2 BED IN LOW POSITION AND CALL LIGHT IN REACH.
--- NOTE | 2019-09-19 12:13 | NUR ---
PATIENT TO REFUSE THE FLU SHOT UPON DISCHARGE.
--- NOTE | 2019-09-19 13:45 | NUR ---
PATIENT IS STABLE AND VSS. PATIENT DENIES ANY NEEDS OR PAIN. ORDERS RECEIVED FOR DC. WRITTEN AND VERBAL INSTRUCTIONS GIVEN AND PATIENT VERBALLIZED UNDERSTANDING. PATIENT SIGNED DC ORDERS. PATIENT IS DCD HOME FOR SELF CARE. PATIENT TO FRONT DOOR VIA WC TO VEHICLE DRIVEN BY A FRIEND.
--- NOTE | 2019-09-19 16:45 | MORECARE ---
CASE MANAGEMENT DISCHARGE SUMMARY PATIENT: NOLVIA MARTIN UNIT: [id number] ADM DATE: 09/11/19 AGE: 29 : 86 SEX: M ROOM/BED: D.4904 AUTHOR: MIRIAM,DOC PHYSICIAN: REFERRING PHYSICIAN: CARISA ADAMS MD DATE OF SERVICE: 09/19/19 Discharge Plan Patient Name: NOLVIA MARTIN Facility: [facility]:[place] : 1990 Planned Disposition: Outpatient clinics\\services (Programs) Anticipated Discharge Date: 09/19/19 Discharge Date: 09/19/2019 Expected LOS: 8 Initial Reviewer: [email or web address] Initial Review Date: 09/12/2019 Generated: 09/19/19 5:45 pm DCP- Discharge Planning Updated by [email or web address]: Bertram Stanley on 09/12/19 3:[address] Patient Name: NOLVIA MARTIN Admission Status: ER Accout number: [id number] Admission Date: 09-11-2019 : 1990 Admission Diagnosis: Attending: CARISA LEZAMA Current LOS: 1 Anticipated DC Date: 09-15-2019 Planned Disposition: Outpatient clinics\\services (Programs) Primary Insurance: MEDICAID [place] PLANNED EXTERNAL PROVIDER: [facility] OUTPATIENT Discharge Planning Comments: CM MET WITH PT IN ROOM TO DISCUSS DISCHARGE PLANNING AND NEEDS. PT REPORTS LIVING AT HOME [place] WITH A FRIEND ON [address] PT HAS NO MEDICAL EQUIPMENT AND NO OUTSIDE SERVICES ASSISTING IN THE HOME. CM DISCUSSED AVAILABILITY OF HOME HEALTH, REHAB SERVICES AND MEDICAL EQUIPMENT. PT REPORTS HE CAN GO TO OUTPATIENT INFUSION AGAIN IT IS WALKING DISTANCE TO THE HOSPITAL FROM HOME. PT REPORTS HE LEFT OUT OF TOWN FOR THANKSGIVING AND GOT " STUCK OUT OF TOWN", PT REPORTS WALKING HOME AT DISCHARGE.CM PROVIDED PT WITH HIS MEDICAID NUMBER AND PHONE NUMBER FOR MEDICAID TRANSPORTATION, EDUCATED ON SERVICE AND INSTRUCTED TO CALL AND CERTIFY FOR THE SERVICES. PT REPORTS UNDERSTANDING. CM CALLED OUTPATIENT AT [facility], SPOKE TO RICHARD WHO INFORMED CM THAT PT WILL NEED NEW OUTPATIENT ORDERS FOR INFUSION TO CONTINUE. CM NOTIFIED MAYRA MOURA AND DR. ADAMS. PT PLANS TO RETURN HOME WITH FRIEND, IS WALKING DISTANCE FROM HOSPITAL AND HAS AVAILABILITY OF MEDICAID TRANSPORTATION IF HE WILL ENROLL. OUTPATIENT NEEDS NEW ORDERS FOR INFUSION FOR CM TO ARRANGE. Automotive Painter: Bertram Stanley DCPIA - Discharge Planning Initial Assessment Updated by [email or web address]: Bertram Stanley on 09/12/19 4:35 pm * Is the patient Alert and Oriented? Yes * How many steps to enter\\exit or inside your home? * PCP NONE * Pharmacy [facility] ON [address] * Preadmission Environment Home with Family * ADLs Independent * Equipment None * Other Equipment NO MEDICAL EQUIPMENT PROVIDER PREFERENCE * List name and contact numbers for known caregivers / representatives who currently or will assist patient after discharge: PAOLA CRABTREE, FRIEND, * Verbal permission to speak to the caregivers and representatives has been obtained from the patient. N/A * Community resources currently utilized None * Please name any agencies selected above. NONE * Additional services required to return to the preadmission environment? Yes * Can the patient safely return to the preadmission environment? Yes * Has this patient been hospitalized within the prior 30 days at any hospital? Yes Last DP export: 09/12/19 3:43 Patient Name: NOLVIA MARTIN Page [id number] at 1645 All edits/amendments must be made on the electronic document DICTATION DATE: 09/19/191644 ELECTRONICS SPECIALIST: RUBY 09/19/191644 [facility]#: [id number] NC DATE:09/19/19 STATUS: DIS IN [facility] [address] [place] [address] END OF REPORT
== END 2019-09-19 14:20 | disposition home or self-care (01) | DRG 289 ==
LOC: D.ER 18:06 → D.M2 22:48
PROVIDERS: Family Medicine; Internal Medicine Nephrology; ADMIT Family Medicine; ATTEND Family Medicine
DX: I33.0 Acute and subacute infective endocarditis (principal); F17.213 Nicotine dependence, cigarettes, with withdrawal; F15.10 Other stimulant abuse, uncomplicated; Z91.19 Patient's noncompliance with other medical treatment and regimen